=== PATIENT | female | born 1935 | race African-American/Black ===

== ENCOUNTER 2019-10-26 03:14 | Inpatient (IN) | payer MEDICARE ==
[2019-10-26] VITALS (7 sets, daily range): BP systolic 95–153; BP diastolic 60–96
[~2019-10-26] VITALS: Ht 160 cm; Wt 65.6 kg
[2019-10-26] MEDS ORDERED: FUROSEMIDE40 MG ORAL (03:17)
[2019-10-26] MEDS ORDERED: ZOCOR20 M1 ORAL (03:17)
[2019-10-26] MEDS ORDERED: XARELTO20 MG ORAL (03:17)
[2019-10-26] MEDS ORDERED: METOPROLOL TAR100 M1 ORAL (03:17)
--- NOTE | 2019-10-26 03:20 | NUR ---
ED Nurse Note: Patient was BIBA RA 68 from home due to palpitation. Patient presented anxious, HR 145, BP 156/98. Patient was placed in a gown, connected to the monitor, ERMD at bed side.
--- NOTE | 2019-10-26 03:22 | NUR ---
ED Nurse Note: blood spesimen collected sent down
[2019-10-26] MEDS ORDERED: dilTIAZem HCl 25mg/5ml Inj ONE (03:27)
--- NOTE | 2019-10-26 03:29 | Emergency Room Report ---
History of Present Illness General Chief Complaint: Palpitations Present Illness HPI Disclaimer: Please note that this report is being documented using [employer] technology. This can lead to erroneous entry secondary to incorrect interpretation by the dictating instrument. HPI: 84-year-old female with history of atrial fibrillation on Xarelto, CHF status post pacemaker presents for evaluation of palpitations. Symptoms present approximately 2 days. 3 days ago she was admitted to [facility] overnight for control of rapid atrial fibrillation. She was started on amiodarone 400 mg and her metoprolol was changed to to 25 mg twice daily. Almost after discharge she began to feel palpitations and progressive shortness of breath. Never complained of chest pain. Notes mild swelling in her ankles that is not atypical for her. She does take Lasix and is compliant with her medications. She has a follow-up appointment with her secretary to the vice president tomorrow. PMH: Atrial fibrillation, CHF, hyperlipidemia PSH: Pacemaker Allergies: None reported Social Hx: Non-smoker Allergies: Coded Allergies: No Known Allergies (Unverified , 10/26/19) Patient History Last Menstrual Period: n/a Nursing Documentation-PM Past Medical History: No History, Except For Hx Hypertension: Yes Review of Systems All Other Systems: negative except mentioned in HPI Physical Exam Vital Signs Date Time Temp Pulse Resp B/P (MAP) Pulse Ox O2 Delivery O2 Flow Rate FiO2 10/26/19 03:12 98.1 104 16 153/96 (115) 98 Room Air General: Awake and alert, no acute distress HEENT: NC/AT. EOMI. Cardiovascular: Tachycardic, irregularly irregular rhythm Resp: Mildly labored breathing. No cough, wheezing or crackles appreciated Abdomen: Abdomen is soft, nondistended. Nontender Skin: Intact. No abrasions, laceration or rash over the exposed skin MSK: Normal tone and bulk. Moving all extremities. No obvious deformity. 2+ lower extremity pitting edema Neuro: Awake and alert. Mentating appropriately. Medical Decision Making Diagnostic Impression: Primary Impression: Rapid atrial fibrillation Additional Impressions: MELINA (acute kidney injury) CHF exacerbation ER Course This an 84-year-old female history of atrial fibrillation presenting for evaluation of palpitations and mild shortness of breath without chest pain. She arrives in rapid atrial fibrillation. EKG shows rate in the 130s. Vital signs are stable. Will obtain IV access, draw labs including troponin, obtain a chest x-ray and give diltiazem for rate control. Disposition depending on lab results and patient reevaluation. Laboratory Tests Test 10/26/19 03:53 White Blood Count 6.4 K/UL (4.8-10.8) Red Blood Count 3.80 M/UL (4.20-5.40) L Hemoglobin 11.6 G/DL (12.0-16.0) L Hematocrit 35.9 % (37.0-47.0) L Mean Corpuscular Volume 94 FL (80-99) Mean Corpuscular Hemoglobin 30.6 PG (27.0-31.0) Mean Corpuscular Hemoglobin Concent 32.3 G/DL (32.0-36.0) Red Cell Distribution Width 14.2 % (11.6-14.8) Platelet Count 306 K/UL (150-450) Mean Platelet Volume 8.7 FL (6.5-10.1) Neutrophils (%) (Auto) 69.3 % (45.0-75.0) Lymphocytes (%) (Auto) 21.0 % (20.0-45.0) Monocytes (%) (Auto) 8.3 % (1.0-10.0) Eosinophils (%) (Auto) 0.3 % (0.0-3.0) Basophils (%) (Auto) 1.1 % (0.0-2.0) Prothrombin Time 20.9 SEC (9.30-11.50) H Prothrombin Time INR 2.0 (0.9-1.1) H PTT 48 SEC (23-33) H Sodium Level 144 MMOL/L (136-145) Potassium Level 4.2 MMOL/L (3.5-5.1) Chloride Level 108 MMOL/L (98-107) H Carbon Dioxide Level 25 MMOL/L (21-32) Anion Gap 11 mmol/L (5-15) Blood Urea Nitrogen 51 mg/dL (7-18) H Creatinine 2.5 MG/DL (0.55-1.30) H Estimate Glomerular Filtration Rate mL/min (>60) Glucose Level 163 MG/DL (74-106) H Calcium Level 9.6 MG/DL (8.5-10.1) Total Bilirubin 1.3 MG/DL (0.2-1.0) H Direct Bilirubin 0.4 MG/DL (0.0-0.3) H Aspartate Amino Transferase (AST) 51 U/L (15-37) H Alanine Aminotransferase (ALT) 69 U/L (12-78) Alkaline Phosphatase 75 U/L (46-116) Troponin I 0.055 ng/mL (0.000-0.056) Pro-B-Type Natriuretic Peptide 8424 pg/mL (0-125) H Total Protein 7.8 G/DL (6.4-8.2) Albumin 3.0 G/DL (3.4-5.0) L Globulin 4.8 g/dL Albumin/Globulin Ratio 0.6 (1.0-2.7) L EKG Diagnostic Results EKG Time: 03:11 Rate: tachycardiac Rhythm: other ST Segments: no acute changes - Atrial fibrillation Other Impression Rapid atrial fibrillation. Rhythm Strip Diag. Results Rhythm Strip Time: 03:11 Rate: 130 Rhythm: other - Rapid A. fib Chest X-Ray Diagnostic Results Chest X-Ray Diagnostic Results : Chest X-Ray Ordered: Yes # of Views/Limited/Complete: 1 View Indication: Shortness of Breath EP Interpretation: Yes Interpretation: other - Bilateral interstitial edema versus consolidation in the right lower lobe Impression: Other - Edema versus consolidation Electronically Signed by: Electronically signed by Dr. Diallo Foster Reevaluation Time: 05:51 Last Vital Signs Date Time Temp Pulse Resp B/P (MAP) Pulse Ox O2 Delivery O2 Flow Rate FiO2 10/26/19 03:12 98.1 104 16 153/96 (115) 98 Room Air Reevaluation Impression Achieved rate control after 2 doses of IV diltiazem followed by oral load. Patient has a troponin just at the higher end of normal. She remains chest pain -free. She is feeling better after rate control. Continues to complain of cough and some orthopnea. Peptide elevated and chest x-ray concerning for interstitial edema consistent with CHF exacerbation. I discussed these findings with the patient's secretary to the vice president, Dr. Chappell, who stated that the renal insufficiency is new for the patient and is likely due to hypoperfusion during her prolonged A. fib RVR likely going on for 2 days. Requesting admission for diuresis. She is planning to electrically cardiovert the patient later this week if she can be diuresed and kidney function improves. Patient treated with 1 dose of ceftriaxone and Lasix. She will be admitted to telemetry for further management. Disposition: ADMITTED INPATIENT Condition: Serious Diallo Foster MD Oct 26, 2019 03:29
[2019-10-26] MEDS ORDERED: dilTIAZem HCl 25mg/5ml Inj IVP ONE ×2 (03:30→04:15)
[2019-10-26] MEDS ORDERED: dilTIAZem HCl 30mg tab ONE (03:44)
[2019-10-26] MEDS ORDERED: dilTIAZem HCl 60mg tab ORAL ONE (03:45)
--- NOTE | 2019-10-26 03:50 | NUR ---
ED Nurse Note: Due to pyxis does not have Diltiazem 60mg, 30 mg x2 were overrided by RN. ER MD aware.
[2019-10-26] MEDS ORDERED: Benzonatate 100mg Perles ORAL ONE (04:00)
[2019-10-26] MEDS ORDERED: Promethazine/DM 6.25mg/5ml ORAL PRN (04:00)
[2019-10-26 04:03] LABS: BASOPHILS % (AUTO) 1.1 % (0.0-2.0); EOSINOPHILS % (AUTO) 0.3 % (0.0-3.0); HEMATOCRIT 35.9 % (37.0-47.0); HEMOGLOBIN 11.6 G/DL (12.0-16.0); MEAN CORPUSCULAR VOLUME 94 FL (80-99); MONOCYTES % (AUTO) 8.3 % (1.0-10.0); NEUTROPHILS % (AUTO) 69.3 % (45.0-75.0); PLATELET COUNT 306 K/UL (150-450); RED CELL DISTRIBUTION WIDTH 14.2 % (11.6-14.8); WHITE BLOOD COUNT 6.4 K/UL (4.8-10.8)
--- NOTE | 2019-10-26 04:25 | NUR ---
ED Nurse Note: Patient's oxygen went down to 83, placed patient on 2L via NC.
[2019-10-26 04:26] LABS: ANION GAP 11 mmol/L (5-15); BLOOD UREA NITROGEN 51 mg/dL (7-18); CALCIUM 9.6 MG/DL (8.5-10.1); CARBON DIOXIDE 25 MMOL/L (21-32); CHLORIDE 108 MMOL/L (98-107); CREATININE 2.5 MG/DL (0.55-1.30); POTASSIUM 4.2 MMOL/L (3.5-5.1); SODIUM 144 MMOL/L (136-145)
[2019-10-26 04:37] LABS: ALANINE AMINOTRANSFERASE 69 U/L (12-78); ALBUMIN/GLOBULIN RATIO 0.6 (1.0-2.7); ALKALINE PHOSPHATASE 75 U/L (46-116); ASPARTATE AMINO TRANSFERASE 51 U/L (15-37); BILIRUBIN,TOTAL 1.3 MG/DL (0.2-1.0)
[2019-10-26 05:14] LABS: BILIRUBIN,DIRECT 0.4 MG/DL (0.0-0.3)
[2019-10-26] MEDS ORDERED: Azithromycin 250mg tab ORAL ONE (05:15)
[2019-10-26] MEDS ORDERED: cefTRIAXone 1 GM in NS 55 ML IVPB ONE (05:15)
--- NOTE | 2019-10-26 06:46 | NUR ---
ED Nurse Note: Patient is sleeping, no acute distress noticed, VSS at this time.
--- NOTE | 2019-10-26 07:40 | NUR ---
ED Nurse Note: report given to Delfina MALAVE, endorsed all plan of care to FRIEDA Mathis.
--- NOTE | 2019-10-26 08:10 | NUR ---
ED Nurse Note: Patient transferred to Telemetry unit with 1 technical administrative assistant and 1 RN in stable condition, seismic observer on.
--- NOTE | 2019-10-26 08:30 | NUR ---
NURSE NOTES: Received report from FRIEDA Koo @ ER. The patient's belongings checked with the patient and two nurses. Medical, surgical, allergy, and social history taken by the patient. Admitting EKG strip obtained. Medication reconciliation completed @ ER. The patient has R AC 20G intact and patent. The patient does not have POLST of Advanced directive. The patient's skin is intact. Initial vital signs taken and reported the patient's comprehensive medical history, medication, and initial vital signs to Dr. Mcqueen for admission order. The patient's bed in the lowest position, call light in reach, and fall and aspiration precaution reinforced. IV site intact and patent. Will continue plan of care.
--- NOTE | 2019-10-26 08:50 | NUR ---
NURSE NOTES: Dr. Mcqueen put admission orders. Clarification made regarding orders. Will continue plan of care.
[2019-10-26] MEDS ORDERED: dilTIAZem HCl 25mg/5ml Inj IVP SCH (09:00)
[2019-10-26] MEDS ORDERED: Milk of Magnesia 30ml Ud ORAL PRN (09:00)
--- NOTE | 2019-10-26 09:00 | NUR ---
NURSE NOTES: Medication reconciliation completed. Will continue plan of care.
[2019-10-26] MEDS: Metoprolol Tartrate 50mg tab ORAL SCH ×2 (09:30→20:37)
--- NOTE | 2019-10-26 10:00 | NUR ---
NURSE NOTES: The patient's heart rate and rhythm stabilized after Metoprolol PO and Diltiazem IVP. The patient denies of chest pain, shortness of breath, or palpitation. Will continue plan of care.
--- NOTE | 2019-10-26 12:10 | Diagnostic Imaging Report ---
Indication: Chest pain Technique: One view of the chest Comparison: none Findings: There is mild generalized interstitial congestion and hazy bilateral basilar airspace opacities. The heart is enlarged. The left costophrenic sulcus is obscured. There is a left chest biventricular AICD. Elevation of the right humeral head suggests prior rotator cuff injury. Epigastric surgical clips are noted Impression: Evidence of bilateral interstitial and airspace edema. Cardiomegaly Other findings as noted This agrees with the preliminary interpretation provided overnight by [facility] teleradiology service.
--- NOTE | 2019-10-26 13:00 | NUR ---
NURSE NOTES: The patient is stable without acute distress or shortness of breath. Free from chest pain, shortness of breath, or palpitation. The patient's heart rate within normal range. Will continue plan of care.
--- NOTE | 2019-10-26 14:30 | NUR ---
NURSE NOTES: Xarelto dosage and frequency confirmed with patient and document. Will inform to the pharmacy. Will continue plan of care.
[2019-10-26] MEDS ORDERED: METOPROLOL SUC100 MG ORAL (14:50)
--- NOTE | 2019-10-26 15:30 | NUR ---
NURSE NOTES: Urine, Sputum, and Influenza swab completed and sent down to the lab. Will follow up the result. Will continue plan of care.
--- NOTE | 2019-10-26 15:45 | NUR ---
CASE MANAGEMENT:REVIEW 84 YR OLD FEMALE BIBA FROM HOME CC: PALPITATION SI: RAPID AFIB. CHF EXACERBATION. MELINA 98.0 145 16 153/96 98% ON RA H/H-11.6/35.9 BUN+51 CR+2.5 BNP+8424 IS: IV CARDIZEM X3 IV ROCEPHIN X1 IV AZITHROMYCIN X1 500CC NS BOLUS CHEST XRAY : TO TELEMETRY
--- NOTE | 2019-10-26 16:00 | Consultation ---
DATE OF CONSULTATION: 10/26/2019 INFECTIOUS DISEASES CONSULTATION CONSULTING PHYSICIAN: Carol Salazar M.D. REFERRING PHYSICIAN: Dirk Mcqueen M.D. REASON FOR CONSULTATION: Pneumonia. HISTORY OF PRESENTING ILLNESS: This is an 84-year-old lady with history of congestive heart failure, atrial fibrillation, hypertension, hyperlipidemia who comes in with palpitations. She was found to have atrial fibrillation recently. There is also concern for pneumonia and an Infectious Diseases consultation has been obtained for antibiotics. PAST MEDICAL HISTORY: 1. History of hypertension. 2. Congestive heart failure. 3. Atrial fibrillation. 4. Status post pacemaker placement. SOCIAL HISTORY: She does not smoke. She drinks alcohol socially. No history of drug use. FAMILY HISTORY: Noncontributory. REVIEW OF SYSTEMS: RESPIRATORY: No fever, chills. No cough. She has no shortness of breath. No chest pain. CARDIAC: No chest pain. She had palpitation. No dizziness. No syncope. GASTROINTESTINAL: No nausea. No vomiting. No abdominal pain or diarrhea. MEDICATIONS: As an inpatient, she is on ceftriaxone, Pravachol, Xarelto, Tylenol, metoprolol, milk of magnesia, Phenergan. ALLERGIES: No known drug allergies. PHYSICAL EXAMINATION: VITAL SIGNS: Temperature of 97.8, T-max of 98.1, pulse of 126, respiratory rate 17, blood pressure 113/76, O2 saturation of 96%. HEENT: Pupils equally reactive to light and accommodation. Mouth appears clean without thrush. NECK: Supple. No adenopathy. No JVD. CARDIOVASCULAR: Regular rate and rhythm. No murmurs. LUNGS: Clear to auscultation bilaterally. No crackles. No wheezes. ABDOMEN: Soft and nontender. No organomegaly. EXTREMITIES: No cyanosis, no clubbing, no edema. LABORATORY AND DIAGNOSTIC DATA: White count 6.4, hemoglobin 11.6, hematocrit 35.9, MCV 94, platelet count of 306, neutrophils of 69%. Sodium 144, potassium 4.2, chloride 108, bicarb 25, BUN 51, creatinine 2.5, glucose 163, calcium 9.6. Total bilirubin 1.3, direct bilirubin 0.4, AST 51, ALT 69, alkaline phosphatase 75. Beta natriuretic peptide 8424. Total protein 7.8, albumin of 3. Chest x-ray showed bilateral interstitial edema versus consolidation in the right lower lobe. ASSESSMENT: This is an 84-year-old lady with history of hypertension, congestive heart failure, atrial fibrillation who comes in with palpitations and is found to have. 1. Possible community-acquired pneumonia. 2. Congestive heart failure. 3. Atrial fibrillation. 4. Hypertension. PLAN: 1. Continue ceftriaxone. 2. We will order sputum for Gram stain and culture. 3. We will follow up cultures and adjust antibiotics accordingly. I would like to thank, Dr. Mcqueen, for this consultation. Carol Salazar M.D. DR: MARIA D JOB#: [id number] CC: Dirk Mcqueen M.D. [facility] CENTERSubhash
--- NOTE | 2019-10-26 16:00 | NUR ---
NURSE NOTES: Notified Dr. Mcqueen regarding uptrending of heart rate again to 100s. Dr. Mcqueen at the bedside assessed the patient. No new order at this time. Will continue plan of care.
--- NOTE | 2019-10-26 16:55 | Diagnostic Imaging Report ---
Indication: Chronic renal failure, abnormal renal function tests Technique: Grayscale and duplex images of the kidneys, retroperitoneum, and bladder were obtained. Comparison: none Findings: Right kidney measures 9 cm in length. Left kidney measures 8.7 cm in length. Both kidneys demonstrate normal echogenicity. No hydronephrosis. Left kidney demonstrates a 14 mm cyst. Normal inferior vena cava. Bladder is normal. Bilateral pleural effusions incidentally noted Impression: Somewhat small kidneys bilaterally. Negative for hydronephrosis Bilateral pleural effusions.
[2019-10-26] MEDS: Xarelto 15mg tab ORAL SCH (17:02)
--- NOTE | 2019-10-26 18:00 | NUR ---
NURSE NOTES: The patient is stable without acute distress or shortness of breath. Will continue plan of care.
[2019-10-26 18:26] LABS: APPEARANCE,URINE CLEAR; BILIRUBIN, URINE NEGATIVE (NEGATIVE); COLOR,URINE PALE YELLOW; GLUCOSE, URINE (UA) NEGATIVE (NEGATIVE); KETONES,URINE NEGATIVE (NEGATIVE); LEUKOCYTE ESTERASE ,URINE NEGATIVE (NEGATIVE); NITRITE,URINE NEGATIVE (NEGATIVE); PH,URINE 5 (4.5-8.0); PROTEIN,URINE 1+ (NEGATIVE); UROBILINOGEN,URINE NORMAL MG/DL (0.0-1.0)
--- NOTE | 2019-10-26 19:15 | NUR ---
HAND-OFF: Report given to FRIEDA Trujillo. The patient is resting on the bed without acute distress or shortness of breath. The patient's bed in the lowest position, call light in reach, and fall and aspiration precaution reinforced. IV site intact and patent. Oxygen therapy per order. Endorsed plan of care.
--- NOTE | 2019-10-26 19:25 | NUR ---
NURSE NOTES: Pt received from FRIEDA Mathis alert and oriented x4 with no acute s/s of distress noted. IV site asymptomatic and patent, R ac 20g, saline lock. Bed in lowest position, call light and belongings within reach.
[2019-10-26] MEDS: Losartan 25mg tab ORAL SCH (20:38)
--- NOTE | 2019-10-26 21:15 | Consultation ---
DATE OF CONSULTATION: 10/26/2019 NEPHROLOGY CONSULTATION CONSULTING PHYSICIAN: Vasyl Powers M.D. REFERRING PHYSICIAN: Dirk Mcqueen M.D. REASON FOR CONSULTATION: Elevated BUN and creatinine, and congestive heart failure. HISTORY OF PRESENT ILLNESS: The patient has a history of atrial fibrillation, congestive heart failure, who was recently in [facility] and she was started on Xarelto recently and had prescriptions for Lasix 40 mg b.i.d., but apparently was not taking it in the last couple days. She also had a metoprolol dose reduced apparently from 100 to 25 mg twice a day. She presents with palpitations and shortness of breath. She is not really aware of any kidney disease. She is voiding well without difficulty. PAST SURGICAL HISTORY: Pacemaker and surgery for peritonitis, also pacemaker battery in 2013. ALLERGIES: None known. MEDICATIONS: Listed as furosemide 40 mg b.i.d., metoprolol succinate 100 mg daily but possibly decreased to 25 mg, Xarelto 20 mg daily, Zocor 20 mg daily. She also takes vitamin C, vitamin D, and a multivitamin. HABITS: She is a nonsmoker, nondrinker. SYSTEM REVIEW: HEAD, EYES, EARS, NOSE, AND THROAT: The patient's hearing is good. ENDOCRINE: She is not aware of any diabetes or thyroid disease. PULMONARY: Dyspnea with minimal exertion. No history of TB or asthma. CARDIAC: See history of present illness. GASTROINTESTINAL: She had an ulcer many years ago that resolved and no further GI symptoms. No hematochezia or melena. GENITOURINARY: No dysuria, hematuria, or difficulty voiding. NEUROLOGIC: No CVA or syncope. MUSCULOSKELETAL: No history of chronic joint pain. PHYSICAL EXAMINATION: GENERAL: The patient is alert lady, in no acute distress. VITAL SIGNS: Temperature 91, pulse 103, respirations 18, blood pressure 114/71, pulse oximetry 100% on 2 L. HEAD, EYES, EARS, NOSE, AND THROAT: Sclerae nonicteric. Ocular motions intact in all directions. Oral mucosa moist. NECK: No adenopathy or thyroid enlargement. LUNGS: Decreased breath sounds at the bases. No rales or rhonchi. HEART: Rhythm is atrial fibrillation. I hear no murmur. ABDOMEN: Soft without organomegaly or masses. EXTREMITIES: Showed trace edema. NEUROLOGIC: She is alert and oriented. Cranial nerves are intact. DATABASE: A chest x-ray shows congestive heart failure. Ultrasound of the right kidney 9 cm, left kidney 8.7 cm, both abnormal echogenicity, bladder is normal, noted are bilateral pleural effusions. LABORATORY DATA: Labs shows a white count of 6.4, hemoglobin of 11.6. Sodium 144, potassium 4.2, chloride 108, CO2 25, BUN 51, creatinine 2.5, and glucose 163. Troponin 0.055. BNP 8424 and albumin is 3.0. No urinalysis is back. IMPRESSION: 1. Elevated BUN and creatinine, likely due to chronic kidney disease, stage 3 or 4, etiologies unclear. She has an abnormal glucose diabetic nephropathy or hypertensive nephrosclerosis. Further database is needed. She also could have acute kidney injury. Possibly received some sort of nephrotoxic agent when she was in the [facility] recently. 2. Congestive heart failure, acute on chronic. 3. Atrial fibrillation with rapid ventricular response. 4. Pacemaker in place. 5. Albumin 3.0, etiology unclear, possibly nutritional, possibly due to proteinuria. 6. Elevated liver enzymes, likely due to CHF. PLAN: We will continue with diuresis. I would give her Jak as long as her potassium is normal and titrate her blood pressure. She needs rate control and further diuresis. Vasyl Powers M.D. DR: JAYDE JOB#: [id number] CC:
[2019-10-27] VITALS: BP 124/69
--- NOTE | 2019-10-27 04:30 | History and Physical Report ---
DATE OF ADMISSION: 10/26/2019 REASON FOR ADMISSION: Rapid atrial fibrillation and congestive heart failure. HISTORY OF PRESENT ILLNESS: This is an 84-year-old female with a known history of paroxysmal atrial fibrillation and hypertensive heart disease who has a permanent pacemaker since 2008, who presents to the emergency room with shortness of breath and palpitations. She was recently started on anticoagulation, diuretics, and had adjustments of her beta-koki dosing. Her fuel cell designer was contacted by the emergency room staff and mentioned that there were plans for cardioversion in the future once she has been adequately anticoagulated. The patient apparently has not been taking her diuretic for the past few days. In addition, her metoprolol dose was decreased from 100 to 25 mg daily. She denies chest pain, but has been increasingly short of breath and noted palpitations. PAST MEDICAL HISTORY: Permanent pacemaker with generator replacement in 2013, history of peritonitis and associated surgery, hypertension, paroxysmal atrial fibrillation, , and hyperlipidemia. MEDICATIONS: Prescribed medications are reviewed. ALLERGIES: None known. SOCIAL HISTORY: Negative for smoking, alcohol, or substance abuse. FAMILY HISTORY: Noncontributory. REVIEW OF SYSTEMS: No loss of vision or hearing. No history of diabetes or thyroid disorder. No history of seizure or stroke. She has a history of stomach ulcer many years back, but has not had any recent problems with bleeding or pain. She denies known history of kidney disorder or difficulty urinating. She denies history of asthma. Positive PPD. She does have arthritis. PHYSICAL EXAMINATION: GENERAL: A well-developed and well-nourished, in mild distress. VITAL SIGNS: Blood pressure 113/76, pulse 126, respiratory rate 18, afebrile, and oxygen saturation 96%. HEENT: Oropharynx clear. No thrush. NECK: Supple. No adenopathy. Jugular venous pressure is slightly elevated. LUNGS: With bilateral breath sounds. Diminished at the bases with few rales. CARDIAC: Irregularly irregular rhythm. Rapid rate. Normal S1 and S2. A 1/6 systolic murmur at the apex. ABDOMEN: Soft and nontender. EXTREMITIES: No edema. LABORATORY AND DIAGNOSTIC DATA: Chest x-ray revealed interstitial edema, airspace disease, possible right lower lobe consolidation, and cardiac defibrillator. EKG - atrial fibrillation with rapid ventricular response and nonspecific ST-T wave changes. White count 6.4 and hemoglobin 11.6. BUN 51, creatinine 2.5, potassium 4.2, bicarb 25, and sodium 144. Natriuretic peptide 8400. Albumin 3. Troponin was 0.055. IMPRESSION: 1. Acute on chronic systolic and diastolic congestive heart failure. 2. Paroxysmal atrial fibrillation with rapid ventricular response. 3. Biventricular cardiac defibrillator. 4. Mild protein-calorie malnutrition. 5. Transaminitis, likely due to passive congestion. 6. Acute on chronic renal failure. 7. Abnormal chest radiograph. 8. Possible pneumonia. PLAN: 1. Diuresis. 2. Consideration for MAYTE inhibitor therapy. 3. Rate control with additional beta-blockade. 4. Continue anticoagulation for cardioembolic prophylaxis. 5. Defibrillator interrogation if not recently done by private fuel cell designer. 6. Renal, Infectious Disease, and Pulmonary consultations. 7. Empiric antimicrobials. Dirk Mcqueen M.D. DR: ROCHELLE JOB#: [id number] CC:
[2019-10-27] MEDS: cefTRIAXone 1 GM in D5W 55 ML IVPB SCH (05:47)
--- NOTE | 2019-10-27 07:10 | NUR ---
NURSE NOTES: Received report from FRIEDA Trujillo. The patient is resting on the bed without acute distress or shortness of breath. The patient's bed in the lowest position, call light in reach, and fall and aspiration precaution reinforced. Oxygen therapy per order. IV site intact and patent. Will continue plan of care.
--- NOTE | 2019-10-27 07:11 | NUR ---
HAND-OFF: Report given to FRIEDA Mathis. Plan of care endorsed.
[2019-10-27 07:22] LABS: EOSINOPHILS % (AUTO) 1.8 % (0.0-3.0); HEMATOCRIT 35.5 % (37.0-47.0); HEMOGLOBIN 11.2 G/DL (12.0-16.0); LYMPHOCYTES % (AUTO) 23.8 % (20.0-45.0); MEAN CORPUSCULAR VOLUME 97 FL (80-99); MONOCYTES % (AUTO) 10.8 % (1.0-10.0); NEUTROPHILS % (AUTO) 62.6 % (45.0-75.0); PLATELET COUNT 287 K/UL (150-450); RED BLOOD COUNT 3.66 M/UL (4.20-5.40); RED CELL DISTRIBUTION WIDTH 14.9 % (11.6-14.8); WHITE BLOOD COUNT 6.2 K/UL (4.8-10.8)
[2019-10-27 07:49] LABS: ALANINE AMINOTRANSFERASE 90 U/L (12-78); ALBUMIN 2.7 G/DL (3.4-5.0); ALBUMIN/GLOBULIN RATIO 0.6 (1.0-2.7); ALKALINE PHOSPHATASE 91 U/L (46-116); ANION GAP 10 mmol/L (5-15); ASPARTATE AMINO TRANSFERASE 73 U/L (15-37); BILIRUBIN,TOTAL 0.9 MG/DL (0.2-1.0); BLOOD UREA NITROGEN 48 mg/dL (7-18); CALCIUM 9.4 MG/DL (8.5-10.1); CARBON DIOXIDE 27 MMOL/L (21-32); CHLORIDE 107 MMOL/L (98-107); CREATININE 2.2 MG/DL (0.55-1.30); POTASSIUM 3.8 MMOL/L (3.5-5.1); SODIUM 143 MMOL/L (136-145)
[2019-10-27 08:00] VITALS: BP 131/84
[2019-10-27] MEDS: Losartan 25mg tab ORAL SCH ×2 (08:38→21:40)
[2019-10-27] MEDS: Metoprolol Tartrate 50mg tab ORAL SCH (08:38)
--- NOTE | 2019-10-27 09:50 | NUR ---
NURSE NOTES: Notified Dr. Mcqueen regarding elevated heart rate(HR of 120-130s) even with morning dose of Metoprolol tartrate 50mg. Per Dr. Mcqueen, additional dose of Metoprolol tartrate 50mg ordered for just one time. Will administer as ordered. The patient is asymptomatic and denies of chest pain or shortness of breath. Will continue plan of care.
[2019-10-27] MEDS ORDERED: Metoprolol Tartrate 50mg tab ORAL SCH (10:00)
--- NOTE | 2019-10-27 10:19 | Infectious Diseases Prog Note ---
Assessment/Plan Assessment/Plan antibiotics : ceftriaxone A 1. ? pneumonia 2. CHF 3. renal failure improving 4. atrial fibrillation 5. hypertension P 1. continue ceftriaxone 2. will follow up cultures Subjective Constitutional: Denies: fever, chills Respiratory: Reports: dry cough; Denies: shortness of breath Gastrointestinal/Abdominal: Reports: nausea; Denies: vomiting, diarrhea Musculoskeletal: Denies: pain Allergies: Coded Allergies: No Known Allergies (Unverified , 10/26/19) Objective Vital Signs Last 24 Hour Vital Signs Date Time Temp Pulse Resp B/P (MAP) Pulse Ox O2 Delivery O2 Flow Rate FiO2 10/27/19 10:11 136 130/82 10/27/19 08:38 131/84 10/27/19 08:38 111 131/84 10/27/19 08:00 97.2 111 18 131/84 (100) 99 10/27/19 04:00 2.0 10/27/19 04:00 116 10/27/19 00:00 105 10/27/19 00:00 98.1 127 20 124/69 (87) 100 10/26/19 21:00 Room Air 10/26/19 20:38 115/75 10/26/19 20:37 111 115/75 10/26/19 20:00 107 10/26/19 20:00 2.0 10/26/19 20:00 97.7 100 18 121/79 (93) 99 10/26/19 16:00 2.0 10/26/19 16:00 98.1 103 18 114/71 (85) 100 10/26/19 16:00 90 10/26/19 13:17 Room Air 10/26/19 12:00 98.0 79 18 95/60 (72) 99 10/26/19 12:00 70 Height (Feet): 5 Height (Inches): 3.00 Weight (Pounds): 145 Respiratory/Chest: lungs clear Cardiovascular: normal rate, regular rhythm, no gallop/murmur Abdomen: soft, non tender Extremities: no edema Microbiology Date/Time Source Procedure Growth Status 10/26/19 15:30 Nose - Final Complete 10/26/19 15:30 Nose - Final Complete Laboratory Tests Test 10/26/19 15:30 10/27/19 06:07 Urine Color Pale yellow Urine Appearance Clear Urine pH 5 (4.5-8.0) Urine Specific [place] 1.015 (1.005-1.035) Urine Protein 1+ (NEGATIVE) H Urine Glucose (UA) Negative (NEGATIVE) Urine Ketones Negative (NEGATIVE) Urine Blood Negative (NEGATIVE) Urine Nitrite Negative (NEGATIVE) Urine Bilirubin Negative (NEGATIVE) Urine Urobilinogen Normal MG/DL (0.0-1.0) Urine Leukocyte Esterase Negative (NEGATIVE) Urine RBC 0 /HPF (0 - 2) Urine WBC 0-2 /HPF (0 - 2) Urine Squamous Epithelial Cells Many /LPF (NONE/OCC) H Urine Bacteria Few /HPF (NONE) Urine Osmolality 355 mOsm/kg (429-449) L Urine Random Creatinine Pending Urine Random Microalbumin Pending Urine Random Sodium 54 mmol/L (20-110) Urine Microalbumin/Creatinine Ratio Pending White Blood Count 6.2 K/UL (4.8-10.8) Red Blood Count 3.66 M/UL (4.20-5.40) L Hemoglobin 11.2 G/DL (12.0-16.0) L Hematocrit 35.5 % (37.0-47.0) L Mean Corpuscular Volume 97 FL (80-99) Mean Corpuscular Hemoglobin 30.7 PG (27.0-31.0) Mean Corpuscular Hemoglobin Concent 31.7 G/DL (32.0-36.0) L Red Cell Distribution Width 14.9 % (11.6-14.8) H Platelet Count 287 K/UL (150-450) Mean Platelet Volume 7.9 FL (6.5-10.1) Neutrophils (%) (Auto) 62.6 % (45.0-75.0) Lymphocytes (%) (Auto) 23.8 % (20.0-45.0) Monocytes (%) (Auto) 10.8 % (1.0-10.0) H Eosinophils (%) (Auto) 1.8 % (0.0-3.0) Basophils (%) (Auto) 1.0 % (0.0-2.0) Sodium Level 143 MMOL/L (136-145) Potassium Level 3.8 MMOL/L (3.5-5.1) Chloride Level 107 MMOL/L (98-107) Carbon Dioxide Level 27 MMOL/L (21-32) Anion Gap 10 mmol/L (5-15) Blood Urea Nitrogen 48 mg/dL (7-18) H Creatinine 2.2 MG/DL (0.55-1.30) H Estimat Glomerular Filtration Rate mL/min (>60) Glucose Level 143 MG/DL (74-106) H Calcium Level 9.4 MG/DL (8.5-10.1) Total Bilirubin 0.9 MG/DL (0.2-1.0) Aspartate Amino Transf (AST/SGOT) 73 U/L (15-37) H Alanine Aminotransferase (ALT/SGPT) 90 U/L (12-78) H Alkaline Phosphatase 91 U/L (46-116) Troponin I 0.034 ng/mL (0.000-0.056) Pro-B-Type Natriuretic Peptide 5063 pg/mL (0-125) H Total Protein 7.4 G/DL (6.4-8.2) Albumin 2.7 G/DL (3.4-5.0) L Globulin 4.7 g/dL Albumin/Globulin Ratio 0.6 (1.0-2.7) L Thyroid Stimulating Hormone (TSH) 1.546 uiU/mL (0.358-3.740) Current Medications Medications (Trade) Dose Ordered Sig/Ciara Route PRN Reason Start Time Stop Time Status Last Admin Dose Admin Acetaminophen (Tylenol) 650 mg Q4H PRN ORAL Mild Pain/Temp > 100.5 10/26/19 09:00 11/25/19 08:59 Ceftriaxone Sodium 1 gm/ Dextrose 55 ml @ 110 mls/hr Q24H IVPB 10/27/19 05:00 11/03/19 04:59 10/27/19 05:47 Furosemide (Lasix) 40 mg EVERY 12 HOURS IV 10/26/19 21:00 11/25/19 20:59 10/27/19 08:38 Losartan Potassium (Cozaar) 25 mg EVERY 12 HOURS ORAL 10/26/19 21:00 11/25/19 20:59 10/27/19 08:38 Magnesium Hydroxide (Mom) 30 ml DAILYPRN PRN ORAL Constipation 10/26/19 09:00 11/25/19 08:59 10/27/19 00:48 Metoprolol Tartrate (Lopressor) 50 mg ONCE ORAL 10/27/19 10:00 10/27/19 11:00 10/27/19 10:11 Metoprolol Tartrate (Lopressor) 50 mg Q12HR ORAL 10/26/19 09:00 11/25/19 08:59 10/27/19 08:38 Pravastatin Sodium (Pravachol) 20 mg BEDTIME ORAL 10/26/19 21:00 11/25/19 20:59 10/26/19 20:38 Rivaroxaban (Xarelto) 15 mg QPM ORAL 10/26/19 16:30 11/25/19 16:29 10/26/19 17:02 Carol Salazar MD Oct 27, 2019 10:19
--- NOTE | 2019-10-27 11:15 | Diagnostic Imaging Report ---
Indication: Abnormal chest sounds Technique: One view of the chest Comparison: 10/26/2019 Findings: Previously demonstrated interstitial congestion and airspace edema appears slightly improved. Again demonstrated are small bilateral pleural effusions. Left chest pacemaker remains. Impression: Improved interstitial and airspace edema, over one day. Persistent small bilateral pleural effusions Other stable findings as noted
[2019-10-27 12:00] VITALS: BP 136/92
--- NOTE | 2019-10-27 13:00 | NUR ---
NURSE NOTES: The patient is stable without acute distress or shortness of breath. The patient's heart rate stabilized after additional dose of Metoprolol. Will continue plan of care.
--- NOTE | 2019-10-27 13:31 | Nephrology Progress Note ---
Assessment/Plan Problem List: (1) Proteinuria (2) CKD (chronic kidney disease) stage 4, GFR 15-29 ml/min (3) CHF exacerbation (4) Rapid atrial fibrillation Plan continue losartan and lasix, trend lab, d/w Dr Mcqueen and family Subjective Constitutional: Reports: weakness HEENT: Reports: no symptoms Genitourinary: Reports: no symptoms Neurologic/Psychiatric: Reports: no symptoms Subjective less sob Objective Objective Last 24 Hour Vital Signs Date Time Temp Pulse Resp B/P (MAP) Pulse Ox O2 Delivery O2 Flow Rate FiO2 10/27/19 12:00 100 10/27/19 12:00 2.0 10/27/19 12:00 97.5 107 18 136/92 (107) 100 10/27/19 10:11 136 130/82 10/27/19 09:00 Nasal Cannula 2.0 10/27/19 08:38 131/84 10/27/19 08:38 111 131/84 10/27/19 08:00 2.0 10/27/19 08:00 97.2 111 18 131/84 (100) 99 10/27/19 08:00 118 10/27/19 04:00 2.0 10/27/19 04:00 116 10/27/19 00:00 105 10/27/19 00:00 98.1 127 20 124/69 (87) 100 10/26/19 21:00 Room Air 10/26/19 20:38 115/75 10/26/19 20:37 111 115/75 10/26/19 20:00 107 10/26/19 20:00 2.0 10/26/19 20:00 97.7 100 18 121/79 (93) 99 10/26/19 16:00 2.0 10/26/19 16:00 98.1 103 18 114/71 (85) 100 10/26/19 16:00 90 Intake and Output 10/26/19 10/27/19 19:00 07:00 Intake Total 600 ml 250 ml Balance 600 ml 250 ml Intake Oral 600 ml 250 ml # Voids 6 3 # Bowel Movements 1 2 Laboratory Tests 10/26/19 15:30: Urine Color Pale yellow, Urine Appearance Clear, Urine pH 5, Urine Specific [place] 1.015, Urine Protein 1+H, Urine Glucose (UA) Negative, Urine Ketones Negative, Urine Blood Negative, Urine Nitrite Negative, Urine Bilirubin Negative , Urine Urobilinogen Normal, Urine Leukocyte Esterase Negative, Urine RBC 0, Urine WBC 0-2, Urine Squamous Epithelial Cells ManyH, Urine Bacteria Few, Urine Osmolality 355L, Urine Random Creatinine [Pending], Urine Random Microalbumin [ Pending], Urine Random Sodium 54, Urine Microalbumin/Creatinine Ratio [Pending] 10/27/19 06:07: White Blood Count 6.2, Red Blood Count 3.66L, Hemoglobin 11.2L, Hematocrit 35.5L , Mean Corpuscular Volume 97, Mean Corpuscular Hemoglobin 30.7, Mean Corpuscular Hemoglobin Concent 31.7L, Red Cell Distribution Width 14.9H, Platelet Count 287, Mean Platelet Volume 7.9, Neutrophils (%) (Auto) 62.6, Lymphocytes (%) (Auto) 23.8, Monocytes (%) (Auto) 10.8H, Eosinophils (%) (Auto) 1.8, Basophils (%) (Auto) 1.0, Sodium Level 143, Potassium Level 3.8, Chloride Level 107, Carbon Dioxide Level 27, Anion Gap 10, Blood Urea Nitrogen 48H, Creatinine 2.2H, Estimat Glomerular Filtration Rate , Glucose Level 143H, Calcium Level 9.4, Total Bilirubin 0.9, Aspartate Amino Transf (AST/SGOT) 73H, Alanine Aminotransferase (ALT/SGPT) 90H, Alkaline Phosphatase 91, Troponin I 0.034, Pro-B-Type Natriuretic Peptide 5063H, Total Protein 7.4, Albumin 2.7L, Globulin 4.7, Albumin/Globulin Ratio 0.6L, Thyroid Stimulating Hormone (TSH) 1.546 Height (Feet): 5 Height (Inches): 3.00 Weight (Pounds): 145 General Appearance: no apparent distress, alert EENT: normal ENT inspection Neck: normal alignment Cardiovascular: regularly irregular Respiratory/Chest: lungs clear Abdomen: non tender Extremities: no edema Neurologic: meter tester primary II-XII grossly normal Vasyl Powers MD Oct 27, 2019 13:31
[2019-10-27 16:00] VITALS: BP 113/74
[2019-10-27] MEDS ORDERED: Tubing IV Secondary IV ONE (16:10)
[2019-10-27] MEDS ORDERED: NS 275ml ONE (16:10)
--- NOTE | 2019-10-27 16:30 | NUR ---
NURSE NOTES: Notified Dr. Mcqueen regarding the patient's tachycardia. The patient is stable without acute distress, shortness of breath, chest pain, or feeling of palpitation. Dr. Mcqueen increased the dosage of Metoprolol tartrate. Will carry out the order as soon as possible. Will continue plan of care.
--- NOTE | 2019-10-27 16:45 | Consultation ---
DATE OF CONSULTATION: 10/27/2019 HISTORY OF PRESENT ILLNESS: This is an 84-year-old female who was admitted to the hospital due to atrial fibrillation and congestive heart failure. The patient was seen and worked up and admitted on 10/26/2019. I have been asked to consult for respiratory problems and possible pneumonia. It is noted that the patient has a history of permanent pacemaker. She has recently started on anticoagulation however she had not been taking her medications in the last few days. She was admitted to the hospital for subsequent management and care. I have reviewed the imaging studies. I note that there is improvement in the bilateral pleural effusions and interstitial disease over the last 24 hours compared to previous films. The patient does not have leukocytosis and there is no documented fever. She has been borderline hypoxic and is on nasal oxygen. PAST MEDICAL HISTORY: Permanent pacemaker, history of previous abdominal surgery, hypertension, atrial fibrillation, hyperlipidemia. CURRENT MEDICATIONS: Include Tylenol, Rocephin, Lasix, Cozaar, Lopressor, Pravachol, Xarelto. REVIEW OF SYSTEMS: She denies any headaches, hematemesis, or melena. PHYSICAL EXAMINATION: GENERAL: Reveals an elderly female. VITAL SIGNS: Blood pressure at this time is 130/90, heart rate is 100, respirations are 20, she is afebrile, saturation 100% on 2 L of oxygen. HEENT: Unremarkable. CHEST: Decreased breath sounds bilaterally with few crackles. HEART: Normal heart sounds. ABDOMEN: Soft. EXTREMITIES: There is no appreciable edema. LABORATORY AND DIAGNOSTIC DATA: Normal CBC. Creatinine is 2.2. Coags, INR 2.0. Urinalysis is negative. X-ray as discussed above. IMPRESSION: 1. Pulmonary edema. 2. Pleural effusion. 3. Atelectasis. 4. Doubt pneumonia. 5. Atrial fibrillation with RVR. DISCUSSION: Give her current medications and diuresis. I suspect it would be okay to discontinue Rocephin in 24 to 48 hours if she remains afebrile. We will follow as machine hoop maker. Sarath Blancas M.D. DR: Azar JOB#: [id number] CC:
[2019-10-27] MEDS: Xarelto 15mg tab ORAL SCH (17:05)
--- NOTE | 2019-10-27 19:15 | NUR ---
HAND-OFF: Report given to FRIEDA Trujillo. The patient is resting on the bed without acute distress or shortness of breath. The patient's bed in the lowest position, call light in reach, and fall and aspiration precaution reinforced. IV site intact and patent. Endorsed plan of care.
--- NOTE | 2019-10-27 19:20 | NUR ---
NURSE NOTES: Pt received from FRIEDA Mathis alert and oriented x4 with no acute s/s of distress noted. IV site asymptomatic and patent. Bed in lowest position, call light and belongings within reach.
[2019-10-27 20:00] VITALS: BP 116/69
[2019-10-27] MEDS: Metoprolol Tartrate 100mg tab ORAL SCH (21:41)
[2019-10-28] VITALS: BP 116/83
--- NOTE | 2019-10-28 02:30 | Progress Note ---
DATE: 10/27/2019 INTERNAL MEDICINE AND CARDIOLOGY PROGRESS NOTE SUBJECTIVE: The patient continues to have episodes of rapid atrial fibrillation. She has less shortness of breath and chest pain. Her chest x-ray reveals some improvement. OBJECTIVE: VITAL SIGNS: Blood pressure 136/92, pulse 107, respirations 18, afebrile. LUNGS: Diminished breath sounds. HEART: Irregularly irregular rhythm. Normal S1, S2. ABDOMEN: Soft. EXTREMITIES: No edema. LABORATORY DATA: White count 6, hemoglobin 11. BUN 48, creatinine 2.2. Troponin negative. Pro-natriuretic peptide has decreased to 5000. IMPRESSION: 1. Slight improvement, still needs better rate control. 2. Moderate protein-calorie malnutrition. PLAN: 1. Advance beta-koki. 2. Continue cautious diuresis, empiric antimicrobials, and protein supplement. 3. Full anticoagulation for cardioembolic prophylaxis. Dirk Mcqueen M.D. DR: JOHNATHAN/JANNIE JOB#: [id number] CC:
[2019-10-28 04:00] VITALS: BP 127/84
[2019-10-28] MEDS: cefTRIAXone 1 GM in D5W 55 ML IVPB SCH (05:23)
--- NOTE | 2019-10-28 07:15 | NUR ---
NURSE NOTES: Report received from FRIEDA Trujillo. Patient AOx4. In 2L NC. Denies any pain or SOB. Fall safety measures communicated. R AC 20g IV, intact, SL. Bed on lowest position, side rails upx2, brakes engaged, alarm on. Call light within easy each.
--- NOTE | 2019-10-28 07:15 | NUR ---
HAND-OFF: Report given to FRIEDA Almodovar.
[2019-10-28 08:21] LABS: ANION GAP 10 mmol/L (5-15); BLOOD UREA NITROGEN 50 mg/dL (7-18); CALCIUM 9.4 MG/DL (8.5-10.1); CARBON DIOXIDE 25 MMOL/L (21-32); CHLORIDE 108 MMOL/L (98-107); CREATININE 2.1 MG/DL (0.55-1.30); POTASSIUM 4.1 MMOL/L (3.5-5.1); SODIUM 143 MMOL/L (136-145)
--- NOTE | 2019-10-28 08:38 | Pulmonology Progress Note ---
Assessment/Plan Assessment/Plan IMPRESSION: 1. Pulmonary edema. 2. Pleural effusion. 3. Atelectasis. 4. Doubt pneumonia. 5. Atrial fibrillation with RVR. DISCUSSION: Continue her current medications and diuresis. Recommend to discontinue Rocephin I will follow as track announcer. Sarath Blancas M.D. Subjective Interval Events: None new Constitutional: Reports: no symptoms HEENT: Repors: no symptoms Respiratory: Reports: no symptoms Cardiovascular: Reports: no symptoms Gastrointestinal/Abdominal: Reports: no symptoms Genitourinary: Reports: no symptoms Allergies: Coded Allergies: No Known Allergies (Unverified , 10/26/19) Objective Last 24 Hour Vital Signs Date Time Temp Pulse Resp B/P (MAP) Pulse Ox O2 Delivery O2 Flow Rate FiO2 10/28/19 04:00 106 10/28/19 04:00 2.0 10/28/19 04:00 97.4 114 20 127/84 (98) 100 10/28/19 00:00 97.3 101 20 116/83 (94) 100 10/27/19 21:41 116 116/69 10/27/19 21:40 116/69 10/27/19 21:00 Nasal Cannula 2.0 10/27/19 20:00 97.0 118 24 116/69 (85) 100 10/27/19 20:00 101 10/27/19 20:00 2.0 10/27/19 16:00 2.0 10/27/19 16:00 97.2 111 18 113/74 (87) 97 10/27/19 16:00 107 10/27/19 12:00 100 10/27/19 12:00 2.0 10/27/19 12:00 97.5 107 18 136/92 (107) 100 10/27/19 10:11 136 130/82 10/27/19 09:00 Nasal Cannula 2.0 10/27/19 08:38 131/84 10/27/19 08:38 111 131/84 Intake and Output 10/27/19 10/28/19 18:59 06:59 Intake Total 740 ml 250 ml Balance 740 ml 250 ml Intake Oral 740 ml 250 ml # Voids 4 3 # Bowel Movements 3 2 General Appearance: no acute distress HEENT: normocephalic Respiratory/Chest: chest wall non-tender, lungs clear Cardiovascular: normal peripheral pulses, normal rate Abdomen: normal bowel sounds Microbiology Date/Time Source Procedure Growth Status 10/26/19 15:30 Nose - Final Complete 10/26/19 15:30 Nose - Final Complete 10/26/19 15:30 Sputum Gram Stain - Final Complete 10/26/19 15:30 Sputum Culture - Final Streptococcus Group C Usual Respiratory Mary Complete Laboratory Tests 10/28/19 05:47: Sodium Level 143, Potassium Level 4.1, Chloride Level 108H, Carbon Dioxide Level 25, Anion Gap 10, Blood Urea Nitrogen 50H, Creatinine 2.1H, Estimat Glomerular Filtration Rate , Glucose Level 197H, Calcium Level 9.4, Pro-B-Type Natriuretic Peptide 6962H Current Medications Medications (Trade) Dose Ordered Sig/Ciara Route PRN Reason Start Time Stop Time Status Last Admin Dose Admin Acetaminophen (Tylenol) 650 mg Q4H PRN ORAL Mild Pain/Temp > 100.5 10/26/19 09:00 11/25/19 08:59 Ceftriaxone Sodium 1 gm/ Dextrose 55 ml @ 110 mls/hr Q24H IVPB 10/27/19 05:00 11/03/19 04:59 10/28/19 05:23 Furosemide (Lasix) 40 mg EVERY 12 HOURS IV 10/26/19 21:00 11/25/19 20:59 10/27/19 21:41 Losartan Potassium (Cozaar) 25 mg EVERY 12 HOURS ORAL 10/26/19 21:00 11/25/19 20:59 10/27/19 21:40 Magnesium Hydroxide (Mom) 30 ml DAILYPRN PRN ORAL Constipation 10/26/19 09:00 11/25/19 08:59 10/27/19 00:48 Metoprolol Tartrate (Lopressor) 100 mg Q12HR ORAL 10/27/19 21:00 11/26/19 20:59 10/27/19 21:41 Pravastatin Sodium (Pravachol) 20 mg BEDTIME ORAL 10/26/19 21:00 11/25/19 20:59 10/27/19 21:41 Rivaroxaban (Xarelto) 15 mg QPM ORAL 10/26/19 16:30 11/25/19 16:29 10/27/19 17:05 Sarath Blancas MD Oct 28, 2019 08:38
--- NOTE | 2019-10-28 09:25 | NUR ---
RADIOLOGY DEPT., CHEST X-RAY IN DEPT. COMPLETED BY LEE GAONA
[2019-10-28] MEDS: Losartan 25mg tab ORAL SCH ×2 (09:44→21:29)
[2019-10-28] MEDS: Metoprolol Tartrate 100mg tab ORAL SCH ×2 (09:47→21:00)
[2019-10-28 12:00] VITALS: BP 113/87
--- NOTE | 2019-10-28 12:43 | NUR ---
CASE MANAGEMENT:REVIEW 10/28/19 SI: PULMONARY EDEMA PLEURAL EFFUSION. AFIB W/RVR 97.4 122 20 127/84 100% ON 2L/NC BUN=50 CR=2.1 GLUCOSE+197 BNP+6962 IS: IV ROCEPHIN Q24 LOPRESSOR PO Q12 IV LASIX Q12 XARELTO PO QPM : TELEMETRY STATUS DCP: FROM HOME
--- NOTE | 2019-10-28 14:16 | Infectious Diseases Prog Note ---
Assessment/Plan Assessment/Plan A 1. Pulmonary edema, less likely pneumonia 2. CHF 3. renal failure improving 4. atrial fibrillation 5. hypertension P 1. Discontinue ceftriaxone 2. will follow up cultures Subjective ROS Limited/Unobtainable: Yes Constitutional: Reports: other - feels better; Denies: fever Respiratory: Reports: no symptoms Cardiovascular: Reports: palpitations Gastrointestinal/Abdominal: Reports: no symptoms Genitourinary: Reports: no symptoms Allergies: Coded Allergies: No Known Allergies (Unverified , 10/26/19) Objective Vital Signs Last 24 Hour Vital Signs Date Time Temp Pulse Resp B/P (MAP) Pulse Ox O2 Delivery O2 Flow Rate FiO2 10/28/19 12:00 96.8 102 18 113/87 (96) 100 10/28/19 12:00 97 10/28/19 09:47 122 123/98 10/28/19 09:44 123/98 10/28/19 09:00 Nasal Cannula 2.0 10/28/19 08:00 123 10/28/19 04:00 106 10/28/19 04:00 2.0 10/28/19 04:00 97.4 114 20 127/84 (98) 100 10/28/19 00:00 97.3 101 20 116/83 (94) 100 10/27/19 21:41 116 116/69 10/27/19 21:40 116/69 10/27/19 21:00 Nasal Cannula 2.0 10/27/19 20:00 97.0 118 24 116/69 (85) 100 10/27/19 20:00 101 10/27/19 20:00 2.0 10/27/19 16:00 2.0 10/27/19 16:00 97.2 111 18 113/74 (87) 97 10/27/19 16:00 107 Height (Feet): 5 Height (Inches): 3.00 Weight (Pounds): 144 General Appearance: no acute distress HEENT: mucous membranes moist Respiratory/Chest: lungs clear Cardiovascular: tachycardia Abdomen: soft, non tender Extremities: no edema Neurologic/Psychiatric: alert, oriented x 3, responsive Microbiology Date/Time Source Procedure Growth Status 10/26/19 15:30 Nose - Final Complete 10/26/19 15:30 Nose - Final Complete 10/26/19 15:30 Sputum Gram Stain - Final Complete 10/26/19 15:30 Sputum Culture - Final Streptococcus Group C Usual Respiratory Mary Complete Laboratory Tests Test 10/28/19 05:47 Sodium Level 143 MMOL/L (136-145) Potassium Level 4.1 MMOL/L (3.5-5.1) Chloride Level 108 MMOL/L (98-107) H Carbon Dioxide Level 25 MMOL/L (21-32) Anion Gap 10 mmol/L (5-15) Blood Urea Nitrogen 50 mg/dL (7-18) H Creatinine 2.1 MG/DL (0.55-1.30) H Estimat Glomerular Filtration Rate mL/min (>60) Glucose Level 197 MG/DL (74-106) H Calcium Level 9.4 MG/DL (8.5-10.1) Pro-B-Type Natriuretic Peptide 6962 pg/mL (0-125) H Current Medications Medications (Trade) Dose Ordered Sig/Ciara Route PRN Reason Start Time Stop Time Status Last Admin Dose Admin Acetaminophen (Tylenol) 650 mg Q4H PRN ORAL Mild Pain/Temp > 100.5 10/26/19 09:00 11/25/19 08:59 Ceftriaxone Sodium 1 gm/ Dextrose 55 ml @ 110 mls/hr Q24H IVPB 10/27/19 05:00 11/03/19 04:59 10/28/19 05:23 Furosemide (Lasix) 40 mg EVERY 12 HOURS IV 10/26/19 21:00 11/25/19 20:59 10/28/19 09:47 Losartan Potassium (Cozaar) 25 mg EVERY 12 HOURS ORAL 10/26/19 21:00 11/25/19 20:59 10/28/19 09:44 Magnesium Hydroxide (Mom) 30 ml DAILYPRN PRN ORAL Constipation 10/26/19 09:00 11/25/19 08:59 10/27/19 00:48 Metoprolol Tartrate (Lopressor) 100 mg Q12HR ORAL 10/27/19 21:00 11/26/19 20:59 10/28/19 09:47 Pravastatin Sodium (Pravachol) 20 mg BEDTIME ORAL 10/26/19 21:00 11/25/19 20:59 10/27/19 21:41 Rivaroxaban (Xarelto) 15 mg QPM ORAL 10/26/19 16:30 11/25/19 16:29 10/27/19 17:05 Anurag Umana MD Oct 28, 2019 14:16
[2019-10-28 16:00] VITALS: BP 115/85
--- NOTE | 2019-10-28 16:34 | Nephrology Progress Note ---
Assessment/Plan Problem List: (1) Proteinuria (2) CKD (chronic kidney disease) stage 4, GFR 15-29 ml/min (3) CHF exacerbation (4) Rapid atrial fibrillation (5) Diabetes Plan continue losartan and lasix, trend lab, d/w Dr Mcqueen and family, add januvia as glu to 197 Subjective Constitutional: Reports: weakness HEENT: Reports: no symptoms Genitourinary: Reports: no symptoms Neurologic/Psychiatric: Reports: no symptoms Subjective less sob still cough Objective Objective Last 24 Hour Vital Signs Date Time Temp Pulse Resp B/P (MAP) Pulse Ox O2 Delivery O2 Flow Rate FiO2 10/28/19 16:00 97.3 102 17 115/85 (95) 100 10/28/19 12:00 96.8 102 18 113/87 (96) 100 10/28/19 12:00 97 10/28/19 09:47 122 123/98 10/28/19 09:44 123/98 10/28/19 09:00 Nasal Cannula 2.0 10/28/19 08:00 123 10/28/19 04:00 106 10/28/19 04:00 2.0 10/28/19 04:00 97.4 114 20 127/84 (98) 100 10/28/19 00:00 97.3 101 20 116/83 (94) 100 10/27/19 21:41 116 116/69 10/27/19 21:40 116/69 10/27/19 21:00 Nasal Cannula 2.0 10/27/19 20:00 97.0 118 24 116/69 (85) 100 10/27/19 20:00 101 10/27/19 20:00 2.0 Intake and Output 10/27/19 10/28/19 19:00 07:00 Intake Total 740 ml 250 ml Balance 740 ml 250 ml Intake Oral 740 ml 250 ml # Voids 4 3 # Bowel Movements 3 2 Laboratory Tests 10/28/19 05:47: Sodium Level 143, Potassium Level 4.1, Chloride Level 108H, Carbon Dioxide Level 25, Anion Gap 10, Blood Urea Nitrogen 50H, Creatinine 2.1H, Estimat Glomerular Filtration Rate , Glucose Level 197H, Calcium Level 9.4, Pro-B-Type Natriuretic Peptide 6962H Height (Feet): 5 Height (Inches): 3.00 Weight (Pounds): 144 General Appearance: no apparent distress, alert EENT: normal ENT inspection Neck: normal alignment Cardiovascular: regularly irregular Respiratory/Chest: lungs clear, normal breath sounds Abdomen: non tender, soft Extremities: no edema Neurologic: flower maker II-XII grossly normal Vasyl Powers MD Oct 28, 2019 16:34
[2019-10-28] MEDS: Xarelto 15mg tab ORAL SCH (16:55)
[2019-10-28] MEDS ORDERED: Amiodarone 200mg tab ORAL SCH (17:31)
--- NOTE | 2019-10-28 19:20 | NUR ---
HAND-OFF: Report given to FRIEDA Richardson. Pt. in stable condition. Plan of care endorsed.
--- NOTE | 2019-10-28 19:21 | NUR ---
NURSE NOTES: Got report from Nishi AMLAVE. Pt in stable condition. Denies any pain. No s/s of distress or discomfort noted. Pt resting in bed comfortably. Bed in low and locked position, call light within reach, bedside table within reach. Continue to monitor.
[2019-10-28 20:00] VITALS: BP 128/90
[2019-10-29] VITALS: BP 102/73
[2019-10-29] MEDS ORDERED: Digoxin 0.5mg/2ml Inj IVP SCH (01:00)
--- NOTE | 2019-10-29 01:30 | Progress Note ---
DATE: 10/28/2019 SUBJECTIVE: The patient still has shortness of breath. Heart rates have improved, but remain above 100 at times. OBJECTIVE: VITAL SIGNS: Blood pressure 124/80, pulse 90 to 120, respirations 18, and afebrile. LUNGS: Diminished breath sounds. CARDIAC: Irregularly irregular rhythm. Normal S1, S2. ABDOMEN: Soft. EXTREMITIES: Trace edema. Cardiac defibrillator was interrogated. No chronic atrial fibrillation noted. No ICD discharges. Battery life about 2 years. IMPRESSION: 1. Paroxysmal atrial fibrillation with rapid ventricular response. 2. Cardiac defibrillator. 3. Acute on chronic systolic and diastolic congestive heart failure. 4. Ischemic cardiomyopathy. 5. Acute on chronic renal failure. PLAN: 1. Add digoxin. 2. Continue metoprolol. 3. Continue full anticoagulation for cardioembolic prophylaxis. 4. Check echocardiogram. 5. Optimize anti-failure regimen. Dirk Mcqueen M.D. DR: ELLIOTT JOB#: [id number] CC:
[2019-10-29 04:00] VITALS: BP 148/93
[2019-10-29] MEDS: sitaGLIPtin 25mg tab ORAL SCH (06:26)
--- NOTE | 2019-10-29 07:21 | NUR ---
NURSE NOTES: Report received from FRIEDA Richardson. Patient AOx4. In 2L NC. Denies any pain or SOB. Having breakfast. Bed on lowest position, side rails upx2, brakes engaged. Call light within easy reach. Plan of care communicated with patient.
[2019-10-29 07:30] LABS: ANION GAP 9 mmol/L (5-15); BLOOD UREA NITROGEN 47 mg/dL (7-18); CALCIUM 8.8 MG/DL (8.5-10.1); CARBON DIOXIDE 27 MMOL/L (21-32); CHLORIDE 109 MMOL/L (98-107); CREATININE 1.9 MG/DL (0.55-1.30); POTASSIUM 3.8 MMOL/L (3.5-5.1); SODIUM 145 MMOL/L (136-145)
--- NOTE | 2019-10-29 07:30 | NUR ---
HAND-OFF: Report given to Nishi MALAVE.
[2019-10-29 08:00] VITALS: BP 132/85
--- NOTE | 2019-10-29 08:32 | Infectious Diseases Prog Note ---
Assessment/Plan Assessment/Plan A 1. Pulmonary edema, less likely pneumonia 2. CHF 3. renal failure improving 4. atrial fibrillation 5. hypertension P 1. Observe off antibiotic Subjective ROS Limited/Unobtainable: No Constitutional: Reports: no symptoms, other - feels better Respiratory: Reports: dry cough Cardiovascular: Reports: no symptoms Gastrointestinal/Abdominal: Reports: no symptoms Genitourinary: Reports: no symptoms Allergies: Coded Allergies: No Known Allergies (Unverified , 10/26/19) Objective Vital Signs Last 24 Hour Vital Signs Date Time Temp Pulse Resp B/P (MAP) Pulse Ox O2 Delivery O2 Flow Rate FiO2 10/29/19 04:00 97.7 71 18 148/93 (111) 100 10/29/19 04:00 78 10/29/19 01:15 120 10/29/19 00:00 107 10/29/19 00:00 97.9 115 20 102/73 (83) 99 10/28/19 21:29 128/90 10/28/19 21:00 Nasal Cannula 2.0 10/28/19 21:00 110 128/90 10/28/19 20:00 115 10/28/19 20:00 97.8 110 20 128/90 (103) 99 10/28/19 16:00 109 10/28/19 16:00 97.3 102 17 115/85 (95) 100 10/28/19 12:00 96.8 102 18 113/87 (96) 100 10/28/19 12:00 97 10/28/19 09:47 122 123/98 10/28/19 09:44 123/98 10/28/19 09:00 Nasal Cannula 2.0 Height (Feet): 5 Height (Inches): 3.00 Weight (Pounds): 144 General Appearance: no acute distress Respiratory/Chest: lungs clear Cardiovascular: normal rate Abdomen: soft, non tender Extremities: no edema Neurologic/Psychiatric: alert, oriented x 3, responsive Microbiology Date/Time Source Procedure Growth Status 10/26/19 15:30 Nose - Final Complete 10/26/19 15:30 Nose - Final Complete 10/26/19 15:30 Sputum Gram Stain - Final Complete 10/26/19 15:30 Sputum Culture - Final Streptococcus Group C Usual Respiratory Mary Complete Laboratory Tests Test 10/29/19 05:36 Sodium Level 145 MMOL/L (136-145) Potassium Level 3.8 MMOL/L (3.5-5.1) Chloride Level 109 MMOL/L (98-107) H Carbon Dioxide Level 27 MMOL/L (21-32) Anion Gap 9 mmol/L (5-15) Blood Urea Nitrogen 47 mg/dL (7-18) H Creatinine 1.9 MG/DL (0.55-1.30) H Estimat Glomerular Filtration Rate mL/min (>60) Glucose Level 103 MG/DL (74-106) Calcium Level 8.8 MG/DL (8.5-10.1) Magnesium Level 2.3 MG/DL (1.8-2.4) Pro-B-Type Natriuretic Peptide 6786 pg/mL (0-125) H Current Medications Medications (Trade) Dose Ordered Sig/Ciara Route PRN Reason Start Time Stop Time Status Last Admin Dose Admin Acetaminophen (Tylenol) 650 mg Q4H PRN ORAL Mild Pain/Temp > 100.5 10/26/19 09:00 11/25/19 08:59 Furosemide (Lasix) 40 mg EVERY 12 HOURS IV 10/26/19 21:00 11/25/19 20:59 10/28/19 21:29 Losartan Potassium (Cozaar) 25 mg EVERY 12 HOURS ORAL 10/26/19 21:00 11/25/19 20:59 10/28/19 21:29 Magnesium Hydroxide (Mom) 30 ml DAILYPRN PRN ORAL Constipation 10/26/19 09:00 11/25/19 08:59 10/27/19 00:48 Metoprolol Tartrate (Lopressor) 100 mg Q12HR ORAL 10/27/19 21:00 11/26/19 20:59 10/28/19 21:00 Pravastatin Sodium (Pravachol) 20 mg BEDTIME ORAL 10/26/19 21:00 11/25/19 20:59 10/28/19 21:00 Rivaroxaban (Xarelto) 15 mg QPM ORAL 10/26/19 16:30 11/25/19 16:29 10/28/19 16:55 Sitagliptin Phosphate (Januvia) 25 mg ACBREAKFAST ORAL 10/29/19 06:30 11/28/19 06:29 10/29/19 06:26 Anurag Umana MD Oct 29, 2019 08:32
[2019-10-29] MEDS: Losartan 25mg tab ORAL SCH ×2 (08:58→20:40)
[2019-10-29] MEDS: Metoprolol Tartrate 100mg tab ORAL SCH ×2 (08:58→20:40)
--- NOTE | 2019-10-29 11:48 | NUR ---
CARDIOLOGY : ANTOLIN STEINER [id number] ROOM 206-1 2-D ECHO REPORT : Normal left ventriuclar chamber size . Global left ventricular hypokiensis . Left ventricular ejection fraction estimated to be 35-40 %. Mild left ventricular hypertrophy. Pleural effusion present . Mild bi-atrial enlargement . Right ventricular chamber size is within upper limits of normal . Focal aortic valve sclerosis with adequate cusp excursion. Thickened mitral valve leaflets with normal excursion. Mitral annulus and aortic root calcification. Pulmonic valve not well visualized. Normal tricuspid valve structure. IVC dilated at 2.3 cm without physiologic collapse suggestive of increased RA pressure. Pacemaker wire present in the right side chambers. A color flow and spectral Doppler study was performed and revealed: No aortic insufficiency. Moderate to severe mitral regurgitation. Left ventricular diastolic function is not diagnostic due to arrhythmia . Moderate tricuspid regurgitation. Tricuspid systolic velocities suggests peak right ventricular systolic pressure of 47mmHg,consistent with moderate pulmonary hypertension. Trace pulmonic regurgitation .
[2019-10-29 12:00] VITALS: BP 118/72
--- NOTE | 2019-10-29 12:24 | Nephrology Progress Note ---
Assessment/Plan Problem List: (1) Proteinuria (2) CKD (chronic kidney disease) stage 4, GFR 15-29 ml/min (3) CHF exacerbation (4) Rapid atrial fibrillation (5) Diabetes Plan continue losartan and lasix, trend lab, d/w Dr Mcqueen and family, add januvia as glu to 197 Subjective Constitutional: Reports: weakness HEENT: Reports: no symptoms Genitourinary: Reports: no symptoms Neurologic/Psychiatric: Reports: no symptoms Subjective less sob still cough Objective Objective Last 24 Hour Vital Signs Date Time Temp Pulse Resp B/P (MAP) Pulse Ox O2 Delivery O2 Flow Rate FiO2 10/29/19 08:58 75 132/85 10/29/19 08:58 132/85 10/29/19 08:00 97.7 75 18 132/85 (101) 100 10/29/19 04:00 97.7 71 18 148/93 (111) 100 10/29/19 04:00 78 10/29/19 01:15 120 10/29/19 00:00 107 10/29/19 00:00 97.9 115 20 102/73 (83) 99 10/28/19 21:29 128/90 10/28/19 21:00 Nasal Cannula 2.0 10/28/19 21:00 110 128/90 10/28/19 20:00 115 10/28/19 20:00 97.8 110 20 128/90 (103) 99 10/28/19 16:00 109 10/28/19 16:00 97.3 102 17 115/85 (95) 100 Intake and Output 10/28/19 10/29/19 19:00 07:00 Intake Total 620 ml Balance 620 ml Intake Oral 620 ml # Voids 2 1 # Bowel Movements 1 1 Laboratory Tests 10/29/19 05:36: Sodium Level 145, Potassium Level 3.8, Chloride Level 109H, Carbon Dioxide Level 27, Anion Gap 9, Blood Urea Nitrogen 47H, Creatinine 1.9H, Estimat Glomerular Filtration Rate , Glucose Level 103, Calcium Level 8.8, Magnesium Level 2.3, Pro-B-Type Natriuretic Peptide 6786H Height (Feet): 5 Height (Inches): 3.00 Weight (Pounds): 144 General Appearance: no apparent distress, alert EENT: normal ENT inspection Neck: normal alignment Cardiovascular: regularly irregular Respiratory/Chest: lungs clear, normal breath sounds Abdomen: non tender, soft Extremities: no edema Neurologic: heating engineer II-XII grossly normal Vasyl Powers MD Oct 29, 2019 12:24
--- NOTE | 2019-10-29 14:10 | NUR ---
NURSE NOTES: O2 sat 95-100, NC titrated down to 1L. Will continue to monitor.
--- NOTE | 2019-10-29 14:25 | NUR ---
RD ASSESSMENT & RECOMMENDATIONS SEE CARE ACTIVITY FOR COMPLETE ASSESSMENT DAILY ESTIMATED NEEDS: Needs based on CHF, DM/ 54kg abw 25-30 kcals/kg 9048-5369 total kcals 1-1.5 g protein/kg 54-81 g total protein 20-22 mL/kg 0778-7632 total fluid mLs NUTRITION DIAGNOSIS: Altered nutrition related lab values R/T h/o DM, CHF dx as evidenced by elev BGs (197 143 163), elev BNP (6786), on lasix. CURRENT DIET:ALFRED, soft easy chew PO DIET RECOMMENDATIONS: LOW NA, CCHO LOW (texture as tolerated) ADDITIONAL RECOMMENDATIONS: * Daily standing weight monitoring for accuracy -> CHF dx, on lasix * A1C for eval of glycemic control :h/o DM * Consider NISS * Monitor lytes daily w/ lasix, replete as needed
[2019-10-29 16:00] VITALS: BP 132/79
--- NOTE | 2019-10-29 16:30 | NUR ---
NURSE NOTES: Pt. saturating well. IN RA.
[2019-10-29] MEDS: Xarelto 15mg tab ORAL SCH (16:49)
--- NOTE | 2019-10-29 17:32 | Pulmonology Progress Note ---
Assessment/Plan Assessment/Plan IMPRESSION: 1. Pulmonary edema. 2. Pleural effusion. 3. Atelectasis. 4. Doubt pneumonia. 5. Atrial fibrillation with RVR. DISCUSSION: Continue her current medications and diuresis. no longer on Rocephin I will follow as lactation specialist. Sarath Blancas M.D. Subjective Interval Events: none new reported Constitutional: Reports: no symptoms HEENT: Repors: no symptoms Respiratory: Reports: no symptoms Cardiovascular: Reports: no symptoms Gastrointestinal/Abdominal: Reports: no symptoms Genitourinary: Reports: no symptoms Allergies: Coded Allergies: No Known Allergies (Unverified , 10/26/19) Objective Last 24 Hour Vital Signs Date Time Temp Pulse Resp B/P (MAP) Pulse Ox O2 Delivery O2 Flow Rate FiO2 10/29/19 16:00 97.2 73 18 132/79 (96) 100 10/29/19 12:00 97.0 72 18 118/72 (87) 100 10/29/19 12:00 73 10/29/19 09:00 Nasal Cannula 2.0 10/29/19 08:58 75 132/85 10/29/19 08:58 132/85 10/29/19 08:00 78 10/29/19 08:00 97.7 75 18 132/85 (101) 100 10/29/19 04:00 97.7 71 18 148/93 (111) 100 10/29/19 04:00 78 10/29/19 01:15 120 10/29/19 00:00 107 10/29/19 00:00 97.9 115 20 102/73 (83) 99 10/28/19 21:29 128/90 10/28/19 21:00 Nasal Cannula 2.0 10/28/19 21:00 110 128/90 10/28/19 20:00 115 10/28/19 20:00 97.8 110 20 128/90 (103) 99 Intake and Output 10/28/19 10/29/19 19:00 07:00 Intake Total 620 ml Balance 620 ml Intake Oral 620 ml # Voids 2 1 # Bowel Movements 1 1 General Appearance: no acute distress HEENT: normocephalic Respiratory/Chest: lungs clear, normal breath sounds Cardiovascular: normal peripheral pulses, normal rate Abdomen: normal bowel sounds Laboratory Tests 10/29/19 05:36: Sodium Level 145, Potassium Level 3.8, Chloride Level 109H, Carbon Dioxide Level 27, Anion Gap 9, Blood Urea Nitrogen 47H, Creatinine 1.9H, Estimat Glomerular Filtration Rate , Glucose Level 103, Calcium Level 8.8, Magnesium Level 2.3, Pro-B-Type Natriuretic Peptide 6786H Current Medications Medications (Trade) Dose Ordered Sig/Ciara Route PRN Reason Start Time Stop Time Status Last Admin Dose Admin Acetaminophen (Tylenol) 650 mg Q4H PRN ORAL Mild Pain/Temp > 100.5 10/26/19 09:00 11/25/19 08:59 Furosemide (Lasix) 40 mg EVERY 12 HOURS IV 10/26/19 21:00 11/25/19 20:59 10/29/19 08:58 Losartan Potassium (Cozaar) 25 mg EVERY 12 HOURS ORAL 10/26/19 21:00 11/25/19 20:59 10/29/19 08:58 Magnesium Hydroxide (Mom) 30 ml DAILYPRN PRN ORAL Constipation 10/26/19 09:00 11/25/19 08:59 10/27/19 00:48 Metoprolol Tartrate (Lopressor) 100 mg Q12HR ORAL 10/27/19 21:00 11/26/19 20:59 10/29/19 08:58 Pravastatin Sodium (Pravachol) 20 mg BEDTIME ORAL 10/26/19 21:00 11/25/19 20:59 10/28/19 21:00 Rivaroxaban (Xarelto) 15 mg QPM ORAL 10/26/19 16:30 11/25/19 16:29 10/29/19 16:49 Sitagliptin Phosphate (Januvia) 25 mg ACBREAKFAST ORAL 10/29/19 06:30 11/28/19 06:29 10/29/19 06:26 Sarath Blancas MD Oct 29, 2019 17:32
--- NOTE | 2019-10-29 18:10 | NUR ---
NURSE NOTES: Walked the whole way back and forth with 4 short breaks, tolerated well.
--- NOTE | 2019-10-29 19:45 | NUR ---
NURSE NOTES: Received pt and report from FRIEDA Almodovar. Observed pt resting in bed with both eyes closed; arousable to voice. Pt is A/Ox4. tallow pumper is in placed, IV site intact, asymptomatic and patent. Bed is in the lowest position and locked. Call light and beside table is within reach. No signs/symptoms of acute distress noted at this time. Will continue plan of care.
--- NOTE | 2019-10-29 19:54 | NUR ---
HAND-OFF: Report given to FRIEDA Enriquez. Pt. in stable condition. Plan of care endorsed.
[2019-10-29 20:00] VITALS: BP 140/90
[2019-10-30] VITALS: BP 134/78
--- NOTE | 2019-10-30 03:30 | Progress Note ---
DATE: 10/29/2019 CARDIOLOGY PROGRESS NOTE SUBJECTIVE: The patient is feeling better. Heart rate control has been achieved. No chest pain. The patient's defibrillator was interrogated yesterday and functioning appropriately. PHYSICAL EXAMINATION: VITAL SIGNS: Blood pressure 118/72 to 140/90, heart rate 70, respiratory rate 20, afebrile. LUNGS: Diminished breath sounds. No rales. NECK: Jugular venous pressure normal. CARDIAC: Irregularly irregular rhythm. Normal S1, S2. A 1/6 systolic murmur at the apex. EXTREMITIES: No edema. LABORATORY DATA: Sodium 145, potassium 3.8, bicarb 27, BUN 47, creatinine 1.9. Pro natriuretic peptide 6700. IMPRESSION: 1. Paroxysmal atrial fibrillation. 2. Cardiac defibrillator. 3. Ischemic cardiomyopathy. 4. Acute on chronic systolic and diastolic congestive heart failure, mostly compensated. PLAN: 1. Continue beta-koki and digoxin. 2. Continue full anticoagulation with apixaban. 3. Maintenance dose diuretic over the next 24 hours. 4. Continue antihypertensive regimen, otherwise without change. 5. Discharge planning. Kunal Sheikh JOB#: [id number] CC:
[2019-10-30 04:00] VITALS: BP 140/64
[2019-10-30] MEDS: sitaGLIPtin 25mg tab ORAL SCH (06:26)
--- NOTE | 2019-10-30 06:35 | Pulmonology Progress Note ---
Assessment/Plan Assessment/Plan IMPRESSION: 1. Pulmonary edema. Improved 2. Pleural effusion. 3. Atelectasis. 4. Do not suspect pneumonia. 5. Atrial fibrillation with RVR. Controlled DISCUSSION: Continue her current medications and diuresis. 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 Sarath Blancas M.D. Subjective Interval Events: Saturating well on RA Constitutional: Reports: no symptoms HEENT: Repors: no symptoms Respiratory: Reports: no symptoms Cardiovascular: Reports: no symptoms Gastrointestinal/Abdominal: Reports: no symptoms Allergies: Coded Allergies: No Known Allergies (Unverified , 10/26/19) Objective Last 24 Hour Vital Signs Date Time Temp Pulse Resp B/P (MAP) Pulse Ox O2 Delivery O2 Flow Rate FiO2 10/30/19 04:00 87 10/30/19 04:00 98.2 88 18 140/64 (89) 94 10/30/19 00:00 77 10/30/19 00:00 98.8 84 19 134/78 (96) 94 10/29/19 21:00 Room Air 10/29/19 20:40 78 140/90 10/29/19 20:40 140/90 10/29/19 20:00 82 10/29/19 20:00 98.2 78 20 140/90 (107) 97 10/29/19 16:00 97.2 73 18 132/79 (96) 100 10/29/19 16:00 72 10/29/19 12:00 97.0 72 18 118/72 (87) 100 10/29/19 12:00 73 10/29/19 09:00 Nasal Cannula 2.0 10/29/19 08:58 75 132/85 10/29/19 08:58 132/85 10/29/19 08:00 78 10/29/19 08:00 97.7 75 18 132/85 (101) 100 Intake and Output 10/29/19 10/30/19 19:00 07:00 Intake Total 480 ml Output Total 150 ml Balance 330 ml Intake Oral 480 ml Output Urine Total 150 ml # Bowel Movements 2 General Appearance: no acute distress HEENT: normocephalic Respiratory/Chest: chest wall non-tender, lungs clear Cardiovascular: normal peripheral pulses Abdomen: normal bowel sounds Current Medications Medications (Trade) Dose Ordered Sig/Ciara Route PRN Reason Start Time Stop Time Status Last Admin Dose Admin Acetaminophen (Tylenol) 650 mg Q4H PRN ORAL Mild Pain/Temp > 100.5 10/26/19 09:00 11/25/19 08:59 Furosemide (Lasix) 40 mg EVERY 12 HOURS IV 10/26/19 21:00 11/25/19 20:59 10/29/19 20:39 Losartan Potassium (Cozaar) 25 mg EVERY 12 HOURS ORAL 10/26/19 21:00 11/25/19 20:59 10/29/19 20:40 Magnesium Hydroxide (Mom) 30 ml DAILYPRN PRN ORAL Constipation 10/26/19 09:00 11/25/19 08:59 10/27/19 00:48 Metoprolol Tartrate (Lopressor) 100 mg Q12HR ORAL 10/27/19 21:00 11/26/19 20:59 10/29/19 20:40 Pravastatin Sodium (Pravachol) 20 mg BEDTIME ORAL 10/26/19 21:00 11/25/19 20:59 10/29/19 20:39 Rivaroxaban (Xarelto) 15 mg QPM ORAL 10/26/19 16:30 11/25/19 16:29 10/29/19 16:49 Sitagliptin Phosphate (Januvia) 25 mg ACBREAKFAST ORAL 10/29/19 06:30 11/28/19 06:29 10/30/19 06:26 Sarath Blancas MD Oct 30, 2019 06:35
--- NOTE | 2019-10-30 07:02 | NUR ---
NURSE NOTES: Report received from FRIEDA Enriquez. Pt. sleeping comfortably. No S/S of distress noted. Room made free of clutter. Bed on lowest position. side rails upx2. Brakes engaged. Call light placed within easy reach.
--- NOTE | 2019-10-30 07:42 | NUR ---
HAND-OFF: Report given to FRIEDA Almodovar. Plan of care endorsed.
[2019-10-30 08:00] VITALS: BP 149/81
[2019-10-30 08:26] LABS: ANION GAP 8 mmol/L (5-15); BLOOD UREA NITROGEN 38 mg/dL (7-18); CALCIUM 8.9 MG/DL (8.5-10.1); CARBON DIOXIDE 29 MMOL/L (21-32); CHLORIDE 107 MMOL/L (98-107); CREATININE 1.7 MG/DL (0.55-1.30); POTASSIUM 3.4 MMOL/L (3.5-5.1); SODIUM 144 MMOL/L (136-145)
[2019-10-30] MEDS: Metoprolol Tartrate 100mg tab ORAL SCH (08:47)
[2019-10-30] MEDS: Losartan 25mg tab ORAL SCH (08:47)
--- NOTE | 2019-10-30 10:15 | Infectious Diseases Prog Note ---
Assessment/Plan Assessment/Plan antibiotics : none A 1. ? pneumonia 2. CHF 3. renal failure improving 4. atrial fibrillation 5. hypertension P 1. continue off antibiotics Subjective Respiratory: Reports: shortness of breath - decreased, productive cough - decreased Gastrointestinal/Abdominal: Denies: nausea, vomiting, diarrhea Musculoskeletal: Denies: pain Allergies: Coded Allergies: No Known Allergies (Unverified , 10/26/19) Objective Vital Signs Last 24 Hour Vital Signs Date Time Temp Pulse Resp B/P (MAP) Pulse Ox O2 Delivery O2 Flow Rate FiO2 10/30/19 09:00 Room Air 10/30/19 08:47 78 149/81 10/30/19 08:47 149/81 10/30/19 08:00 94 10/30/19 08:00 97.5 78 18 149/81 (103) 96 10/30/19 04:00 87 10/30/19 04:00 98.2 88 18 140/64 (89) 94 10/30/19 00:00 77 10/30/19 00:00 98.8 84 19 134/78 (96) 94 10/29/19 21:00 Room Air 10/29/19 20:40 78 140/90 10/29/19 20:40 140/90 10/29/19 20:00 82 10/29/19 20:00 98.2 78 20 140/90 (107) 97 10/29/19 16:00 97.2 73 18 132/79 (96) 100 10/29/19 16:00 72 10/29/19 12:00 97.0 72 18 118/72 (87) 100 10/29/19 12:00 73 Height (Feet): 5 Height (Inches): 3.00 Weight (Pounds): 144 Respiratory/Chest: lungs clear Cardiovascular: normal rate, regular rhythm, no gallop/murmur Abdomen: soft, non tender Extremities: no edema Laboratory Tests Test 10/30/19 05:50 Sodium Level 144 MMOL/L (136-145) Potassium Level 3.4 MMOL/L (3.5-5.1) L Chloride Level 107 MMOL/L (98-107) Carbon Dioxide Level 29 MMOL/L (21-32) Anion Gap 8 mmol/L (5-15) Blood Urea Nitrogen 38 mg/dL (7-18) H Creatinine 1.7 MG/DL (0.55-1.30) H Estimat Glomerular Filtration Rate mL/min (>60) Glucose Level 90 MG/DL (74-106) Calcium Level 8.9 MG/DL (8.5-10.1) Magnesium Level 1.9 MG/DL (1.8-2.4) Pro-B-Type Natriuretic Peptide 5288 pg/mL (0-125) H Current Medications Medications (Trade) Dose Ordered Sig/Ciara Route PRN Reason Start Time Stop Time Status Last Admin Dose Admin Acetaminophen (Tylenol) 650 mg Q4H PRN ORAL Mild Pain/Temp > 100.5 10/26/19 09:00 11/25/19 08:59 Furosemide (Lasix) 40 mg EVERY 12 HOURS IV 10/26/19 21:00 11/25/19 20:59 10/30/19 08:47 Losartan Potassium (Cozaar) 25 mg EVERY 12 HOURS ORAL 10/26/19 21:00 11/25/19 20:59 10/30/19 08:47 Magnesium Hydroxide (Mom) 30 ml DAILYPRN PRN ORAL Constipation 10/26/19 09:00 11/25/19 08:59 10/27/19 00:48 Metoprolol Tartrate (Lopressor) 100 mg Q12HR ORAL 10/27/19 21:00 11/26/19 20:59 10/30/19 08:47 Pravastatin Sodium (Pravachol) 20 mg BEDTIME ORAL 10/26/19 21:00 11/25/19 20:59 10/29/19 20:39 Rivaroxaban (Xarelto) 15 mg QPM ORAL 10/26/19 16:30 11/25/19 16:29 10/29/19 16:49 Sitagliptin Phosphate (Januvia) 25 mg ACBREAKFAST ORAL 10/29/19 06:30 11/28/19 06:29 10/30/19 06:26 Carol Salazar MD Oct 30, 2019 10:15
[2019-10-30 12:06] VITALS: BP 137/73
--- NOTE | 2019-10-30 12:22 | Nephrology Progress Note ---
Assessment/Plan Problem List: (1) Proteinuria (2) CKD (chronic kidney disease) stage 4, GFR 15-29 ml/min (3) CHF exacerbation (4) Rapid atrial fibrillation (5) Diabetes Plan continue losartan increase 100 mg and lasix, trend lab, d/w Dr Mcqueen and family , add januvia as glu to 197, replace K Subjective Constitutional: Reports: weakness HEENT: Reports: no symptoms Genitourinary: Reports: no symptoms Neurologic/Psychiatric: Reports: no symptoms Subjective less sob still cough Objective Objective Last 24 Hour Vital Signs Date Time Temp Pulse Resp B/P (MAP) Pulse Ox O2 Delivery O2 Flow Rate FiO2 10/30/19 12:06 98.2 83 18 137/73 (94) 95 10/30/19 09:00 Room Air 10/30/19 08:47 78 149/81 10/30/19 08:47 149/81 10/30/19 08:00 94 10/30/19 08:00 97.5 78 18 149/81 (103) 96 10/30/19 04:00 87 10/30/19 04:00 98.2 88 18 140/64 (89) 94 10/30/19 00:00 77 10/30/19 00:00 98.8 84 19 134/78 (96) 94 10/29/19 21:00 Room Air 10/29/19 20:40 78 140/90 10/29/19 20:40 140/90 10/29/19 20:00 82 10/29/19 20:00 98.2 78 20 140/90 (107) 97 10/29/19 16:00 97.2 73 18 132/79 (96) 100 10/29/19 16:00 72 Intake and Output 10/29/19 10/30/19 19:00 07:00 Intake Total 480 ml Output Total 150 ml Balance 330 ml Intake Oral 480 ml Output Urine Total 150 ml # Voids 3 # Bowel Movements 2 Laboratory Tests 10/30/19 05:50: Sodium Level 144, Potassium Level 3.4L, Chloride Level 107, Carbon Dioxide Level 29, Anion Gap 8, Blood Urea Nitrogen 38H, Creatinine 1.7H, Estimat Glomerular Filtration Rate , Glucose Level 90, Calcium Level 8.9, Magnesium Level 1.9, Pro-B-Type Natriuretic Peptide 5288H Height (Feet): 5 Height (Inches): 3.00 Weight (Pounds): 144 General Appearance: no apparent distress, alert EENT: normal ENT inspection Neck: normal alignment Cardiovascular: regularly irregular Respiratory/Chest: lungs clear Abdomen: non tender Extremities: no edema Neurologic: rn hematology II-XII grossly normal Vasyl Powers MD Oct 30, 2019 12:22
--- NOTE | 2019-10-30 14:30 | NUR ---
NURSE NOTES: DC NOTE: Pt. VS stable. DC plans had been communicated by MD and RN. DC medications teaching done. Patient verbalized understanding. IV removed intact, covered. child monitor removed. Belongings checked, signed. Medication prescription given to patient. DC package given. Patient signed health information release form to be mailed home. Left floor safe, accompanied by family member and PER DIEM REGISTERED NURSE.
[2019-10-30] MEDS ORDERED: Losartan 50mg tab ORAL SCH (21:00)
--- NOTE | 2019-10-31 17:48 | Discharge Summary ---
Discharge Summary Discharge Summary _ DATE OF ADMISSION: 10/26/2019 DATE OF DISCHARGE: 10/30/2019 DISCHARGED BY: Dr. Dirk Aviles CONSULTANTS: Dr. Vasyl Blancas BRIEF HOSPITAL COURSE: Patient is an 84-year-old -[place] female, with known history of paroxysmal atrial fibrillation and hypertensive heart disease who has a permanent pacemaker since 2008, who presented to the emergency room with shortness of breath and palpitations. She was recently started on anticoagulation, diuretics, and had adjustment of her beta-koki dosing. Her electric power line repairer was contacted by the emergency room staff and mentioned that there were plans for cardioversion in the future once she has been adequately anticoagulated. The patient apparently has not taken her diuretics for the past 2 days. Metoprolol dose was discussed increased from 100 mg to 25 mg. She denied chest pain. She had increased shortness of breath and palpitations. Upon evaluation at the ED, chest x-ray revealed interstitial edema, airspace disease, possible right lower lobe consolidation and cardiac defibrillator. EKG was in atrial fibrillation with RVR and nonspecific STT wave changes. Blood work did not show any leukocytosis. Hemoglobin 11.6. BUN 51. Creatinine 2.5. Potassium 4.2. Bicarb 25 and sodium 144. Natruretic peptide 8400. Albumin 3. Troponin was 0.055. She was admitted for pneumonia, acute CHF and elevated creatinine.. She was given diuresis. She was given additional beta blockade. She was continued on apixaban for anticoagulation for cardioembolic prophylaxis. She was given ceftriaxone for pneumonia. Kidney function was monitored. Patient had elevated BUN and creatinine, likely due to chronic kidney disease. She was given losartan and Lasix. Blood glucose was monitored. She was given Januvia. Chest imaging was reviewed by reserve operator. Patient did not have any leukocytosis. No fever. Ceftriaxone was discontinued. Cardiac defibrillator was interrogated. No chronic atrial fibrillation noted. No ICD discharge. Battery life about 2 years. Digoxin was added to her medication. Cardiac medications were titrated. Electrolytes were repleted. She was eventually discharged home. FINAL DIAGNOSES: Pulmonary edema, less likely pneumonia Acute on chronic systolic and diastolic congestive heart failure Acute on chronic renal failure Paroxysmal atrial fibrillation Cardiac defibrillator Ischemic cardiomyopathy Proteinuria CKD stage IV Diabetes mellitus type 2 Transaminitis likely due to passive congestion Moderate protein calorie malnutrition DISPOSITION: Patient was discharged home. DISCHARGE INSTRUCTIONS: Follow-up in a week. I have been assigned to complete a discharge summary on this account, I was not involved with the patient's management.--ANYA Reinoso Jacqueline Robles NP Oct 31, 2019 17:48
--- NOTE | 2019-11-02 09:24 | Cardiology Report ---
APPROVED REPORT EKG Measurement Heart [id number] <Conclusion> Atrial fibrillation with rapid ventricular response Right axis deviation Nonspecific intraventricular block Abnormal ECG
== END 2019-10-30 14:40 | disposition home or self-care (01) | DRG 291 ==
LOC: EDBD 03:14 → EMR 03:50 → EDBEDREQ 05:17 → 2E 05:23 → EDBEDREQ 05:53
DX: I13.0 Hypertensive heart and chronic kidney disease with heart failure and stage 1 through stage 4 chronic kidney disease, or unspecified chronic kidney disease (principal); I50.43 Acute on chronic combined systolic (congestive) and diastolic (congestive) heart failure; J18.9 Pneumonia, unspecified organism; N17.9 Acute kidney failure, unspecified; N18.4 Chronic kidney disease, stage 4 (severe); E44.0 Moderate protein-calorie malnutrition; J98.11 Atelectasis; I48.0 Paroxysmal atrial fibrillation; Z79.01 Long term (current) use of anticoagulants; Z95.810 Presence of automatic (implantable) cardiac defibrillator; N18.9 Chronic kidney disease, unspecified; E78.5 Hyperlipidemia, unspecified; I25.5 Ischemic cardiomyopathy
CPT/HCPCS: 36415; 71045; 71046; 76770; 80048; 80053; 81003; 82043; 82248; 83735; 83880; 83935; 84300; 84443; 84484; 85025; 85610; 85730; 86710; 87070; 87205; 93005; 93306; 96365; 96375; 96376; 99285; J8499

== ENCOUNTER 2021-01-12 18:58 | Emergency (ER) | payer MEDICARE ==
[~2021-01-12] VITALS: Ht 157.5 cm; Wt 56.7 kg
[~2021-01-12 18:58] MED LIST: DIGOXIN125 MCG ORAL; FUROSEMIDE40 MG ORAL; LOSARTAN POTASS25 MG ORAL; METOPROLOL SUC100 MG ORAL; METOPROLOL TAR100 M1 ORAL; SPIRONOLACTONE25 MG ORAL; XARELTO20 MG ORAL; ZOCOR20 M1 ORAL
[2021-01-12 20:30] VITALS: BP 140/90
--- NOTE | 2021-01-12 20:30 | NUR ---
Patient came to ER ambulatory c/o pain in the left arm since this morning no radiation , no others symptoms associated. Will continue to monitoring.
--- NOTE | 2021-01-12 21:49 | Diagnostic Imaging Report ---
EXAM: XR Left Hand Complete, 3 or More Views CLINICAL HISTORY: PAIN TECHNIQUE: Frontal, lateral and oblique views of the left hand. COMPARISON: No relevant prior studies available. FINDINGS: Bones/joints: No fracture or malalignment. Degenerative changes at the IP joints, first and second MCP joint, and most pronounced at the first CMC joint. Marked osteopenia. Soft tissues: Radiopaque foreign body within the first web space measuring 1.5 mm. IMPRESSION: 1. No fracture or malalignment. 2. Degenerative changes at the IP joints, first and second MCP joint, and most pronounced at the first CMC joint. 3. Radiopaque foreign body within the first web space measuring 1.5 mm.
--- NOTE | 2021-01-12 21:50 | Diagnostic Imaging Report ---
EXAM: XR Left Wrist Complete, 3 or More Views CLINICAL HISTORY: PAIN TECHNIQUE: Frontal, lateral and oblique views of the left wrist. COMPARISON: No relevant prior studies available. IMPRESSION: 1. No fracture or malalignment. 2. 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 3. Moderate degenerative changes at the first MCP joint. 4. 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 5. Radiopaque foreign body in the first web space measuring 1.5 mm.
--- NOTE | 2021-01-12 21:50 | Emergency Room Report ---
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 She has residual weakness in the right side of her body. She reports that when she woke up this morning she had pain in her left thumb. She states the pain is worse with movement and is tender to touch. She denies knowing of any type of trauma. She had no fall. She denies fever or chills. She has no other pain. She denies elbow or shoulder pain. She denies chest pain or shortness of breath. She has no other symptoms. The pain is specifically located in the base of her left thumb. Allergies: Coded Allergies: No Known Allergies (Unverified , 10/26/19) COVID-19 Screening Contact w/high risk pt: No Experienced COVID-19 symptoms?: No COVID-19 Testing performed ASSESSMENT DIRECTOR: No Patient History Past Medical History: see triage record, HTN, DE, CAD, CHF, AFib, CVA/TIA, renal disease Social History: Denies: smoking, alcohol use, drug use Reviewed Nursing Documentation: PMH: Agreed; PSxH: Agreed Nursing Documentation-PMH Hx Cardiac Problems: Yes Hx Hypertension: Yes Hx Pacemaker: Yes Hx Diabetes: Yes Hx Cancer: No Hx Gastrointestinal Problems: Yes - Peritonitis Hx Neurological Problems: No Hx Weakness: Yes Hx Fatigue: Yes Review of Systems All Other Systems: negative except mentioned in HPI Physical Exam Vital Signs Date Time Temp Pulse Resp B/P (MAP) Pulse Ox O2 Delivery O2 Flow Rate FiO2 01/12/21 20:13 100.0 70 16 143/90 (107) 96 Room Air Sp02 EP Interpretation: reviewed, normal General Appearance: no apparent distress, alert, GCS 15, non-toxic Head: normocephalic, atraumatic Eyes: bilateral eye normal inspection ENT: hearing grossly normal, normal pharynx, no angioedema, normal voice Neck: normal inspection, full range of motion Respiratory: no respiratory distress, no retraction, no accessory muscle use, speaking full sentences Rectal: deferred Musculoskeletal: normal range of motion, tender - TTP over the L. 1st carpal/metacarpal joint (thumb). Some mild swelling, no erythema or warmth. +pain w/ ROM of the L. wrist Neurologic: alert, oriented x3, sensory intact, responsive, speech normal, other - L. sided weakness (chronic/at baseline) Psychiatric: judgement/insight normal, memory normal, mood/affect normal, no suicidal/homicidal ideation Skin: no rash, normal color Medical Decision Making Diagnostic Impression: Primary Impression: Arthritis Additional Impression: Hand pain, left ER Course The patient's hand findings are most consistent with degenerative arthritis. The patient is very tender to palpation localized over the CMC joint of the first digit of the left hand. X-ray of the hand and wrist were obtained and these were negative for any acute finding. The patient does have severe degenerative changes identified on x-ray. There is a tiny radiopaque foreign body in the webspace that is scarred and and chronic. There is a slight swelling at the first CMC joint but there is no warmth or erythema. I have a l ow suspicion that this is an infection. However, of note, the patient's temp at triage was 100 and repeat temp just prior to discharge was 99.9. The patient does present during the COVID-19 pandemic. I reassessed this patient prior to discharge and discussed this time with the patient and her son who is bedside. She has had no other symptoms at all. She has not had chills, dysuria, cough or congestion, pain other than in the base of the left thumb as noted. I did educate the son and the patient to closely monitor the patient for any development of any type of new symptoms or increase in the temp to a true fever. The son and the patient agreed that they are comfortable monitoring the patient and would return immediately for any new symptoms. As a precaution, I will go ahead and start the patient on antibiotics for possible early cellulitis. Although, this elevated temp could be completely unrelated and could possibly be a viral illness or other etiology. Given how well-appearing the patient is in the sun stating that he can closely monitor his mother I feel that they can return as needed. The patient and the son are comfortable with the plan. This patient was evaluated in the context of the global COVID-19 pandemic, which necessitated consideration that the patient might be at risk for infection with the [id number] virus that causes COVID-19. Institutional protocols and a lgorithms that pertain to the evaluation of patients at risk for COVID-19 and the state of rapid change based on information released by multiple regulatory bodies including the CDC and federal and state organizations. These policies and algorithms were followed during the patient's care in the ED. Other X-Ray Diagnostic Results Other X-Ray Diagnostic Results : X-Ray ordered: L. hand, L. wrist # of Views/Limited Vs Complete: Complete Indication: Pain EP Interpretation: Yes Interpretation: no fractures, other - See official reports. Degenerative changes at the IP joints, first and second MCP joint and most pronounced at the first CMC joint. Tiny radiopaque foreign body. See electronic medical record. Impression: No acute disease Electronically Signed by: Meagan Aggarwal DO Last Vital Signs Date Time Temp Pulse Resp B/P (MAP) Pulse Ox O2 Delivery O2 Flow Rate FiO2 01/12/21 20:30 99.1 79 17 140/90 98 Room Air Status: improved Disposition: HOME, SELF-CARE Condition: Improved Referrals: NOT CHOSEN IPA/,REFERRING (PCP) Meagan Aggarwal DO Jan 12, 2021 21:50
[2021-01-12] MEDS ORDERED: Tylenol #3 tab (300mg/30mg) ORAL ONE (22:00)
--- NOTE | 2021-01-12 22:18 | NUR ---
pain medication was given as EDP ordered. Will continue to monitor.
[2021-01-12] MEDS ORDERED: CEPHALEXIN500 MG ORAL (22:20)
--- NOTE | 2021-01-12 22:30 | NUR ---
Patient was discharge home as EDP ordered. All vital signs were taken within normal range. Patient . All prescriptions and instructions were given to the patient . Patient verbalized understanding. patient left the hospital in stable condition .
== END 2021-01-12 22:30 | disposition home or self-care (01) ==
LOC: EMR 20:44
DX: M19.042 Primary osteoarthritis, left hand (principal); M79.642 Pain in left hand; I11.9 Hypertensive heart disease without heart failure; I48.91 Unspecified atrial fibrillation; E11.9 Type 2 diabetes mellitus without complications; I25.2 Old myocardial infarction; Z86.73 Personal history of transient ischemic attack (TIA), and cerebral infarction without residual deficits; Z87.19 Personal history of other diseases of the digestive system
CPT/HCPCS: 99284